=== PATIENT | female | born 1975 | race Caucasian/White ===

== ENCOUNTER 2025-05-25 23:31 | Inpatient (IN) | payer MEDICAID, OTHER ==
[~2025-05-25] VITALS: Ht 165.1 cm; Wt 63.4 kg
[2025-05-26] MEDS: SODIUM CHLORIDE 0.9% 1,000 ML IV ONE ×2 (00:15→01:24)
[2025-05-26] MEDS ORDERED: KETOROLAC TROMETH 30 MG/ML 1ML VIAL IV ONE (00:15)
[2025-05-26 00:25] LABS: Hematocrit 33.7 % (36.0-46.0); Hemoglobin 11.4 g/dL (12.2-16.2); Mean Corpuscular Hemoglobin 30.3 pg (28.0-32.0); Mean Corpuscular Volume 89.8 fL (80.0-100.0); Nucleated Red Blood Cells % 0.0 %
[2025-05-26 00:47] LABS: Alanine Aminotransferase 24 U/L (7-40); Albumin 4.0 g/dL (3.2-4.8); Alkaline Phosphatase 107 U/L (46-116); Anion Gap 14 (5-15); BUN/Creatinine Ratio 20.7 (10.0-20.0); Calcium 9.4 mg/dL (8.7-10.4); Glucose 89 mg/dL (74-106); Lipase 44 U/L (12-53); Magnesium 2.2 mg/dL (1.6-2.6); Potassium 3.6 mmol/L (3.5-5.1); Total Protein 7.1 g/dL (5.7-8.2)
[2025-05-26 00:55] LABS: Bilirubin, Total 0.2 mg/dL (0.2-1.0); Carbon Dioxide 16 mmol/L (20-31); Chloride 97 mmol/L (98-107); Sodium 127 mmol/L (136-145)
[2025-05-26 00:56] LABS: Blood Urea Nitrogen 94 mg/dL (9-23)
--- NOTE | 2025-05-26 01:08 | DVH ---
Exam: CT CT AB PEL WO CON-NO ORAL OR IV History: left flank pain, obstructed stone seen on US Comparison Study: None TECHNIQUE: Multidetector CT of the abdomen and pelvis was performed from lung bases to pubic symphysis. Imaging was performed without IV contrast. Axial, coronal, and sagittal multiplanar reformats were obtained from the axial data set by the technologist. RADIATION DOSE: CTDI vol 5.2 mGy. DLP 327.9 mGy.cm Findings: Limited evaluation of the solid organs in the absence of IV contrast. Lungs: Basilar atelectasis/scarring. Liver: Too small to characterize right hepatic lesion. Spleen: Unremarkable. Pancreas: Unremarkable. Gallbladder: Unremarkable. Adrenals: Unremarkable Kidneys: 19 mm calculus is seen in the left renal pelvis with moderate left hydronephrosis. Bilateral additional nephrolithiasis is seen. Nondilated ureters. Pelvic Viscera: Prior hysterectomy. Vasculature: Unremarkable. Retroperitoneum: Shotty retroperitoneal nodes. Bowel: No bowel obstruction. Submucosal fat deposition within the bowel wall may reflect chronic inflammation. Fluid-filled portions of the ascending colon. Moderate hiatal hernia. Musculoskeletal: Surgical screws are present within the left proximal femur. Soft tissues: Lateral breast implants. Impression: 1. 19 mm calculus within the left renal pelvis with moderate left hydronephrosis. 2. Bilateral nephrolithiasis. 3. Additional findings as detailed.
[2025-05-26] MEDS: FAMOTIDINE (10MG/ML) 2ML VL IV ONE (01:35)
[2025-05-26] MEDS: THIAMINE HCL 100 MG TAB PO ONE (01:35)
[2025-05-26] MEDS: FOLIC ACID 1 MG TAB PO ONE (01:35)
[2025-05-26] MEDS: MULTIPLE VITAMIN TAB PO ONE (01:45)
[2025-05-26] MEDS ORDERED: ONDANSETRON ODT 4 MG TAB PO PRN (02:00)
[2025-05-26] MEDS ORDERED: SODIUM CHLORIDE 0.9% 1,000 ML IV SCH (02:00)
[2025-05-26] MEDS: ONDANSETRON HCL 4 MG/2 ML VIAL IV ONE (02:16)
--- NOTE | 2025-05-26 02:31 | ED.PDOC ---
History of Present Illness HPI Comments 49-year-old female with past medical history of alcohol abuse presenting for evaluation of abdominal pain, flank pain, nausea, vomiting, diarrhea over the past several days. Patient reports that she does drink alcohol regularly, drinks each day. However, has not had any alcoholic beverages in the last few days due to her discomfort. Patient reports starting with several episodes of nonbloody, nonbilious emesis and several episodes of the loose, watery stools. Denies any recent antibiotic use. No recent travel outside of the ordinary. Patient reports that she started having pain throughout both sides of her abdomen and both flanks, however, left side was slightly worse than the right side. Reports did start having some slight urinary discomfort over the past couple of days. Having some subjective fevers as well, however, has not actually checked her temperature. Patient was initially seen at another hospital, had a renal ultrasound which showed that she had an obstructive kidney stone so they transferred her here for further evaluation and management. Patient reports no known prior history of kidney stones. When she was seen at the other hospital she was given Zosyn before being transferred over. Chief Complaint: Flank Pain Time Seen by MD: 23:50 Allergies: Coded Allergies: Codeine (Verified Allergy, Unknown, 05/25/25) Information Source: Patient Mode of Arrival: EMS Past Medical History PAST MEDICAL HISTORY: High Lipids Surgical History: Denies all surgeries TRAPEZE ARTIST History: No Pertinent TRAPEZE ARTIST History Family History Family History: Reviewed,noncontributory to illness, Unknown Social History Smoker: Non-Smoker Alcohol: Heavy Drugs: Denies Drug Use Lives In: Home Constitutional: reports: chills, fatigue, fever, weakness; denies: diaphoresis, malaise, sweats, others EENTM: denies: blurred vision, double vision, ear bleeding, ear discharge, ear drainage, ear pain, ear ringing, eye pain, eye redness, hearing loss, mouth pain, mouth swelling, nasal discharge, nose bleeding, nose congestion, nose pain, photophobia, tearing, throat pain, throat swelling, voice changes, others Respiratory: denies: cough, hemoptysis, orthopnea, SOB at rest, shortness of breath, SOB with excertion, stridor, wheezing, others Cardiovascular: denies: chest pain, dizzy spells, diaphoresis, Dyspnea on exertion, edema, irregular heart beat, left arm pain, lightheadedness, palpitations, PND, syncope, others Gastrointestinal: reports: abdominal pain, diarrhea, nausea, poor fluid intake, vomiting; denies: abdomen distended, blood streaked bowels, constipated, dysphagia, difficulty swallowing, hematemesis, melena, poor appetite, rectal bleeding, rectal pain, others Genitourinary: denies: abnormal vagina bleeding, burning, dyspareunia, dysuria, flank pain, frequency, hematuria, incontinence, pain, , vagina discharge, urgency, others Neurological: denies: dizziness, fainting, headache, left sided numbness, left sided weakness, numbness, paresthesia, pre-existing deficit, right sided numbness, right sided weakness, seizure, speech problems, tingling, tremors, weakness, others Musculoskeletal: denies: back pain, gout, joint pain, joint swelling, muscle pain, muscle stiffness, neck pain, others Integumetry: denies: bruises, change in color, change in hair/nails, dryness, laceration, lesions, lumps, rash, wounds, others Allergic/Immunocompromised: denies: Difficulty Healing, Frequent Infections, Hives, Itching, others Hematologic/Lymphatic: denies: anemia, blood clots, easy bleeding, easy bruising, swollen glands, others Endocrine: denies: excessive hunger, excessive sweating, excessive thirst, excessive urination, flushing, intolerance to cold, intolerance to heat, unexplained weight gain, unexplained weight loss, others Psychiatric: denies: anxiety, bipolar disorder, depression, hopeless, panic disorder, schizophrenia, sleepless, suicidal, others All Other Systems: Reviewed and Negative Physical Exam General Appearance: No Apparent Distress, Normal HEENT: Normal ENT Inspection, Pharynx Normal, TMs Normal Neck: Full Range of Motion, Non-Tender, Normal, Normal Inspection Respiratory: Chest Non-Tender, Lungs Clear, No Accessory Muscle Use, No Respiratory Distress, Normal Breath Sounds Cardiovascular: No Edema, No JVD, No Murmur, No Gallop, Normal Peripheral Pulses, Regular Rate/Rhythm Breast Exam: Deferred Gastrointestinal: No Organomegaly, No Pulsatile Mass, Normal Bowel Sounds, Soft, Other (+bilateral lower abdominal ttp) Genitalia: Deferred Pelvic: Deferred Rectal: Deferred Extremities: No calf tenderness, Normal capillary refill, Normal inspection, Normal range of motion, Non-tender, No pedal edema Musculoskeletal : Apperance: Normal 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 Was a procedure done?: No Differential Dx Considerations may include: Dehydration, electrolyte abnormalities, acute kidney insufficiency, obstructive kidney stone, alcohol withdrawal X-Ray, Labs, Meds, VS Vital Signs Date Time Temp Pulse Resp B/P (MAP) Pulse Ox O2 Delivery O2 Flow Rate FiO2 05/26/25 01:30 98.7 101 18 100/69 (79) 97 98.7 05/25/25 23:31 98.6 102 18 112/80 99 98.6 Lab Test 05/26/25 00:14 Range/Units White Blood Count 6.6 4.4-10.8 10^3/uL Red Blood Count 3.75 L 4.0-5.20 10^6/uL Hemoglobin 11.4 L 12.2-16.2 g/dL Hematocrit 33.7 L 36.0-46.0 % Mean Corpuscular Volume 89.8 80.0-100.0 fL Mean Corpuscular Hemoglobin 30.3 28.0-32.0 pg Mean Corpuscular Hemoglobin Concent 33.7 32.0-36.0 g/dL Red Cell Distribution Width 15.6 H 11.8-14.3 % Platelet Count 392 140-450 10^3/uL Mean Platelet Volume 6.6 L 6.9-10.8 fL Neutrophils (%) (Auto) 69.0 37.0-80.0 % Lymphocytes (%) (Auto) 16.1 10.0-50.0 % Monocytes (%) (Auto) 12.6 H 0.0-12.0 % Eosinophils (%) (Auto) 1.9 0.0-7.0 % Basophils (%) (Auto) 0.4 0.0-2.0 % Neutrophils # (Auto) 4.5 1.6-8.6 10 ^3/uL Lymphocytes # (Auto) 1.1 0.4-5.4 10 ^3/uL Monocytes # (Auto) 0.8 0-1.3 10 ^3/uL Eosinophils # (Auto) 0.1 0-0.8 10 ^3/uL Basophils # (Auto) 0 0-0.2 10 ^3/uL Nucleated Red Blood Cells 0.0 % Sodium Level 127 L 136-145 mmol/L Potassium Level 3.6 3.5-5.1 mmol/L Chloride Level 97 L 98-107 mmol/L Carbon Dioxide Level 16 L 20-31 mmol/L Anion Gap 14 5-15 Blood Urea Nitrogen 94 *H 9-23 mg/dL Creatinine 4.54 H 0.550-1.02 mg/dL Glomerular Filtration Rate Calc 11 >90 mL/min BUN/Creatinine Ratio 20.7 H 10.0-20.0 Serum Glucose 89 74-106 mg/dL Calcium Level 9.4 8.7-10.4 mg/dL Magnesium Level 2.2 1.6-2.6 mg/dL Total Bilirubin 0.2 0.2-1.0 mg/dL Aspartate Amino Transferase (AST) 23 13-40 U/L Alanine Aminotransferase (ALT) 24 7-40 U/L Alkaline Phosphatase 107 46-116 U/L Creatine Kinase 48 34-145 U/L Total Protein 7.1 5.7-8.2 g/dL Albumin 4.0 3.2-4.8 g/dL Lipase 44 12-53 U/L Vitamin B12 Level Pending Vitamin D 25-Hydroxy Pending Thyroid Stimulating Hormone (TSH) Pending Plasma/Serum Blood Alcohol < 3.0 <10 mg/dL Current Medications Medications (Trade) Dose Ordered Sig/Fred Route Start Time Stop Time Status Last Admin Sodium Chloride 1,000 ml @ 1,000 mls/hr Q1H ONCE IV 05/26/25 00:15 05/26/25 01:14 DC 05/26/25 00:15 Ondansetron HCl (Zofran) 4 mg ONCE ONCE IV 05/26/25 00:15 05/26/25 00:16 DC 05/26/25 02:16 Famotidine (Pepcid Injection) 20 mg ONCE ONCE IV 05/26/25 00:15 05/26/25 00:16 DC 05/26/25 01:35 Multivitamins (Mvi Tab) 1 tab ONCE ONCE PO 05/26/25 00:15 05/26/25 00:16 MS 05/26/25 01:45 Folic Acid 1 mg ONCE ONCE PO 05/26/25 00:15 05/26/25 00:16 DC 05/26/25 01:35 Thiamine HCl 100 mg ONCE ONCE PO 05/26/25 00:15 05/26/25 00:16 DC 05/26/25 01:35 Sodium Chloride 1,000 ml @ 1,000 mls/hr Q1H ONCE IV 05/26/25 01:15 05/26/25 02:14 DC 05/26/25 01:24 Time of 1ST Reevaluation: 02:29 Reevaluation 1ST: Improved Patient Education/Counseling: Diagnosis, Treatment, Prognosis Family Education/Counseling: No Family Present SEPSIS Sepsis Screen Date sepsis recognized/suspect: May 25, 2025 Time Sepsis recognized/suspect: 2330 Recent Procedure: No On Antibiotic Therapy: No Respiratory Rate >20: No Heart Rate >90: No Temp<36 C (96.8 F) or >38.3 C: No SBP <90 or MAP <65 mmHG: No New Acute Mental Status Change: No Is the patient on CPAP, BIPAP,: No Physician Orders Ct Ab Pel Wo Con-No Oral Or Iv (05/26/25 00:07) Insert Mcclelland Catheter QSHIFT (05/26/25 01:02) Vital Signs Date Time Temp Pulse Resp B/P (MAP) Pulse Ox O2 Delivery O2 Flow Rate FiO2 05/26/25 01:30 98.7 101 18 100/69 (79) 97 98.7 05/25/25 23:31 98.6 102 18 112/80 99 98.6 Laboratory Tests Test 05/26/25 00:14 White Blood Count 6.6 10^3/uL (4.4-10.8) Medications Medications Dose Ordered Sig/Fred Route Start Time Stop Time Status Last Admin Dose Admin Famotidine 20 mg ONCE ONCE IV 05/26/25 00:15 05/26/25 00:16 MS 05/26/25 01:35 Folic Acid 1 mg ONCE ONCE PO 05/26/25 00:15 05/26/25 00:16 MS 05/26/25 01:35 Multivitamins 1 tab ONCE ONCE PO 05/26/25 00:15 05/26/25 00:16 DC 05/26/25 01:45 Ondansetron HCl 4 mg ONCE ONCE IV 05/26/25 00:15 05/26/25 00:16 MS 05/26/25 02:16 Sodium Chloride 1,000 ml @ 1,000 mls/hr Q1H ONCE IV 05/26/25 00:15 05/26/25 01:14 DC 05/26/25 00:15 Sodium Chloride 1,000 ml @ 1,000 mls/hr Q1H ONCE IV 05/26/25 01:15 05/26/25 02:14 DC 05/26/25 01:24 Thiamine HCl 100 mg ONCE ONCE PO 05/26/25 00:15 05/26/25 00:16 DC 05/26/25 01:35 Departure 1 Departure Time of Disposition: 02:31 (49-year-old female with past medical history of alcohol abuse presenting for evaluation of abdominal pain, flank pain, nausea, vomiting, diarrhea over the past several days. Patient was initially seen at another hospital, there were notable for hyponatremia (126) and metabolic acidosis with a bicarb of 14. Urinalysis there was positive for nitrites, she was given Zosyn. Renal ultrasound performed there showed that the patient had a 1.4 cm left renal calculus with moderate left hydronephrosis. Patient upon arrival only noted to be mildly tachycardic, however, remainder of vital signs within normal limits. Labs repeated here. CBC with no evidence of critical leukocytosis or significant anemia. Metabolic panel was notable for acute kidney insufficiency, especially in relation to labs performed just 12 hours ago. Patient now has BUN of 94 with a creatinine of 4.54. This is likely related to severe dehydration from GI losses, may also be related to obstructive kidney stone. CT of the abdomen pelvis was performed here which shows that the patient has a 19 mm left renal pelvis stone with moderate hydronephrosis. A Mcclelland catheter will be placed given signs of acute kidney insufficiency which may be related to dehydration and possibly related to obstructive kidney stone. Patient will be admitted for further management. Defer to admitting team to consult Urology in the morning. Patient was given 1 L normal saline IV fluid bolus, oral thiamine, folic acid, multivitamin given the history of alcohol abuse. Was given IV Pepcid, IV Zofran for symptoms as well. Urinalysis ordered, patient was already given antibiotics at outside hospital. Will be admitted for further workup and management of RIRI an obstructive kidney stone.) Impression: Primary Impression: Nausea vomiting and diarrhea Additional Impressions: Dehydration Acute kidney injury Left nephrolithiasis Hydronephrosis of left kidney Hydronephrosis with urinary obstruction due to renal calculus Alcohol abuse Disposition: 09 ADMITTED INPATIENT Admit to: Med Surg Condition: Fair Critical Care Note Critical Care Time?: No Stability Stability form required: TITO Govea MD May 26, 2025 02:31
--- NOTE | 2025-05-26 02:38 | DVHHPRES ---
History of Present Illness Resident Creating Document: VINEET RAMOS RESIDENT History of Present Illness This is a 49-year-old female with past medical history of hypertension, nephrolithiasis, anxiety disorder, insomnia, low-back pain transfer from [facility] due to left flank pain. Patient had left flank pain for 1 week which is worsen for 1 day, 8/10 intensity, aggravated on movement, dull and burning in nature, continuous, tried ibuprofen with does not helps a lot. Patient reports that she does drink alcohol regularly, drinks each day. However, has not had any alcoholic beverages in the last few days due to her abdominal discomfort. Patient reports starting with several episodes of nonbloody, nonbilious emesis and several episodes of the loose, watery stools. Denies any recent antibiotic use. No recent travel outside of the ordinary. Diarrhea for same duration which is on and off, does not mixed with blood. Patient multiple history of surgery including surgical screw on left femur due to early stage osteoporotic fracture, bilateral breast augmentation, history of salpingo-oophorectomy. Patient denies any recent dietary changes, sick contacts, fall or trauma. Patient currently denies any fever, chest pain, SOB, headache, dysuria, any focal weakness. Past medical history: As above Past surgical history: As above Personal history: Denies any smoking, illicit drug but drinks alcohol daily(last drink 5 days ago) Family history: Mother-renal transplant PCP: Vamsi Jean-Baptiste Allergy: Codeine Home medication: Lisinopril, trazodone, ibuprofen, cyclobenzaprine, hydroxyzine. Review of Systems Constitutional: Yes: Chills, Malaise; No: Fever, Sweats, Weakness, Other Eyes: No: Pain, Vision change, Conjunctivae inflammation, Eyelid inflammation, Other, Redness ENT: No: Ear pain, Ear discharge, Nose pain, Nose discharge, Nose congestion, Mouth pain, Mouth swelling, Throat pain, Throat swelling, Other Respiratory: No: Cough, Dry, Shortness of breath, SOB with excertion, Wheezing, Hemoptysis, Pleuritic Pain, Sputum, Wheezing, Other Cardiovascular: No: Chest Pain, Palpitations, Orthopnea, Paroxysmal Noc. Dyspnea, Edema, Lt Headedness, Other Gastrointestinal: Nausea, Vomiting, Diarrhea; No: Abdominal Pain, Constipation, Melena, Hematochezia, Other Genitourinary: No Dysuria, No Frequency, No Incontinence, No Hematuria, No Retention; Other (Left flank pain) Musculoskeletal: back pain; No: other, neck pain, shoulder pain, arm pain, hand pain, leg pain, foot pain Skin: No: Rash, Lesions, Jaundice, Bruising, Other Neurological: No: Weakness, Numbness, Incoordination, Change in speech, Confusion, Seizures, Other Allergies: Coded Allergies: Codeine (Verified Allergy, Unknown, 05/25/25) Exam Vital Signs Vital Signs Date Time Temp Pulse Resp B/P (MAP) Pulse Ox O2 Delivery O2 Flow Rate FiO2 05/26/25 01:30 98.7 101 18 100/69 (79) 97 98.7 General Appearance: Alert, Cooperative, moderate distress HEENT: Atraumatic, PERRLA, EOMI Respiratory: Clear to auscultation, Normal air movement Cardiovascular: Regular rate, Normal S1, Normal S2, No murmurs Abdominal: Normal bowel sounds, Soft, Other (Left costovertebral angle tender on deep palpation) Extremities: No clubbing, No cyanosis, No edema, Normal pulses Skin: No rashes, No breakdown Neuro: Normal gait, Normal speech, Strength at 5/5 X4 ext, Normal tone, Cranial nerves 3-12 NL Psych/Mental Status: Mental status NL, Mood NL Labs/Xrays Labs Test 05/26/25 00:14 Range/Units White Blood Count 6.6 4.4-10.8 10^3/uL Red Blood Count 3.75 L 4.0-5.20 10^6/uL Hemoglobin 11.4 L 12.2-16.2 g/dL Hematocrit 33.7 L 36.0-46.0 % Mean Corpuscular Volume 89.8 80.0-100.0 fL Mean Corpuscular Hemoglobin 30.3 28.0-32.0 pg Mean Corpuscular Hemoglobin Concent 33.7 32.0-36.0 g/dL Red Cell Distribution Width 15.6 H 11.8-14.3 % Platelet Count 392 140-450 10^3/uL Mean Platelet Volume 6.6 L 6.9-10.8 fL Neutrophils (%) (Auto) 69.0 37.0-80.0 % Lymphocytes (%) (Auto) 16.1 10.0-50.0 % Monocytes (%) (Auto) 12.6 H 0.0-12.0 % Eosinophils (%) (Auto) 1.9 0.0-7.0 % Basophils (%) (Auto) 0.4 0.0-2.0 % Neutrophils # (Auto) 4.5 1.6-8.6 10 ^3/uL Lymphocytes # (Auto) 1.1 0.4-5.4 10 ^3/uL Monocytes # (Auto) 0.8 0-1.3 10 ^3/uL Eosinophils # (Auto) 0.1 0-0.8 10 ^3/uL Basophils # (Auto) 0 0-0.2 10 ^3/uL Nucleated Red Blood Cells 0.0 % Sodium Level 127 L 136-145 mmol/L Potassium Level 3.6 3.5-5.1 mmol/L Chloride Level 97 L 98-107 mmol/L Carbon Dioxide Level 16 L 20-31 mmol/L Anion Gap 14 5-15 Blood Urea Nitrogen 94 *H 9-23 mg/dL Creatinine 4.54 H 0.550-1.02 mg/dL Glomerular Filtration Rate Calc 11 >90 mL/min BUN/Creatinine Ratio 20.7 H 10.0-20.0 Serum Glucose 89 74-106 mg/dL Calcium Level 9.4 8.7-10.4 mg/dL Magnesium Level 2.2 1.6-2.6 mg/dL Total Bilirubin 0.2 0.2-1.0 mg/dL Aspartate Amino Transferase (AST) 23 13-40 U/L Alanine Aminotransferase (ALT) 24 7-40 U/L Alkaline Phosphatase 107 46-116 U/L Total Protein 7.1 5.7-8.2 g/dL Albumin 4.0 3.2-4.8 g/dL Lipase 44 12-53 U/L SEPSIS Sepsis Screen Date sepsis recognized/suspect: May 25, 2025 Time Sepsis recognized/suspect: 2330 Recent Procedure: No On Antibiotic Therapy: No Respiratory Rate >20: No Heart Rate >90: No Temp<36 C (96.8 F) or >38.3 C: No SBP <90 or MAP <65 mmHG: No New Acute Mental Status Change: No Is the patient on CPAP, BIPAP,: No Physician Orders Comprehensive Metabolic Panel (05/26/25 00:07) Lipase (05/26/25 00:07) Urinalysis (05/26/25 00:07) Magnesium (05/26/25 00:07) Blood Alcohol (05/26/25 00:07) Drug Screen (05/26/25 00:07) Ct Ab Pel Wo Con-No Oral Or Iv (05/26/25 00:07) Creatine Kinase (05/26/25 01:02) Insert Mcclelland Catheter QSHIFT (05/26/25 01:02) Admit (05/26/25 01:58) Code Status (05/26/25 01:58) Full Liq Diet (05/26/25 Breakfast) 0.9% Ns 1000 Ml (05/26/25 02:00) Acetaminophen Tablet (Tylenol Tablet) (05/26/25 02:00) Notify Md Of Changes From Base (05/26/25 01:58) Ketorolac Injection (Toradol Injection) (05/26/25 02:00) Pantoprazole Tablet (Protonix Tablet) (05/26/25 06:00) Ondansetron Po (Zofran Po) (05/26/25 02:00) Trazodone Hcl (Desyrel) (05/26/25 22:00) Hydroxyzine Oral (Vistaril Oral) (05/26/25 02:00) * Urology Consult (05/26/25 01:58) Vital Signs Date Time Temp Pulse Resp B/P (MAP) Pulse Ox O2 Delivery O2 Flow Rate FiO2 05/26/25 01:30 98.7 101 18 100/69 (79) 97 98.7 05/25/25 23:31 98.6 102 18 112/80 99 98.6 Laboratory Tests Test 05/26/25 00:14 White Blood Count 6.6 10^3/uL (4.4-10.8) Medications Medications Dose Ordered Sig/Fred Route Start Time Stop Time Status Last Admin Dose Admin Famotidine 20 mg ONCE ONCE IV 05/26/25 00:15 05/26/25 00:16 DC 05/26/25 01:35 20 MG Folic Acid 1 mg ONCE ONCE PO 05/26/25 00:15 05/26/25 00:16 DC 05/26/25 01:35 1 MG Multivitamins 1 tab ONCE ONCE PO 05/26/25 00:15 05/26/25 00:16 DC 05/26/25 01:45 1 TAB Ondansetron HCl 4 mg ONCE ONCE IV 05/26/25 00:15 05/26/25 00:16 DC 05/26/25 02:16 4 MG Sodium Chloride 1,000 ml @ 1,000 mls/hr Q1H ONCE IV 05/26/25 00:15 05/26/25 01:14 DC 05/26/25 00:15 1,000 MLS/HR Sodium Chloride 1,000 ml @ 1,000 mls/hr Q1H ONCE IV 05/26/25 01:15 05/26/25 02:14 DC 05/26/25 01:24 1,000 MLS/HR Thiamine HCl 100 mg ONCE ONCE PO 05/26/25 00:15 05/26/25 00:16 DC 05/26/25 01:35 100 MG Assessment/Plan Assessment/Plan Intractable left flank/back pain due to bilateral nephrolithiasis Left sided hydronephrosis Acute gastroenteritis viral/bacterial Complicated urinary tract infection Vitals: On admission, tachycardic In ER patient received NSS, ondansetron, famotidine, ketorolac, multivitamin, folic acid, thiamine. UA showed blood 1+, leukocyte esterase 2+, RBC 4, WBC 30 Lipase: 44 Creatinine kinase -48 CT abdomen pelvis wo contrast: 19 mm calculus is seen in the left renal pelvis with moderate left hydronephrosis. Bilateral additional nephrolithiasis is seen. 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 Outpatient follow-up Bilateral breast implants. Surgical screws are present within the left proximal femur. Diet: Clear liquid GI prophylaxis: Pantoprazole DVT prophylaxis: Patient ambulating, SCD Goals of care discussion. More than 29 minute spent with patient. Full code status. Case discussed with Dr. Ramon Plan discussed with: Patient, Other (Nurse) My Orders Orders - VINEET RAMOS Procedure Category Date Status Time Admit ADMIT 05/26/25 Verified 01:58 Code Status CODE 05/26/25 Verified 01:58 Full Liq Diet DIET 05/26/25 Verified Breakfast 0.9% Ns 1000 Ml PHA 05/26/25 Verified 02:00 Acetaminophen Tablet PHA 05/26/25 Verified (Tylenol Tablet) 02:00 Notify Md Of Changes LYNN 05/26/25 Verified From Base 01:58 Ketorolac Injection PHA 05/26/25 Verified (Toradol Injection) 02:00 Pantoprazole Tablet PHA 05/26/25 Verified (Protonix Tablet) 06:00 Ondansetron Po PHA 05/26/25 Verified (Zofran Po) 02:00 Trazodone Hcl PHA 05/26/25 Verified (Desyrel) 22:00 Hydroxyzine Oral PHA 05/26/25 Verified (Vistaril Oral) 02:00 * Urology Consult CONS 05/26/25 Verified 01:58 Visit Coding STANDARD RES Billing Provider: JERI RAMON MD Date of Service if different f: May 26, 2025 Common Visit Codes: 56053-AESOHSU INP/OBS CARE (HIGH) Secondary Visit Codes: 76073-KRMIMMRH CARE PLAN 30 MINUTES VINEET RAMOS RESIDENT May 26, 2025 02:38 FLORENCE GASTELUM RESIDENT May 26, 2025 03:37
[2025-05-26] MEDS: hydrOXYzine 25 MG TAB or CAP PO ONE (03:02)
[2025-05-26 03:24] LABS: Urine Protein, UAD Negative (Negative)
[2025-05-26 03:44] LABS: Amphetamine Screen, Urine Neg (NEGATIVE); Benzodiazephine Screen, Urine Neg (NEGATIVE); Cannabinoid Screen, Urine Neg (NEGATIVE); Cocaine Screen, Urine Neg (NEGATIVE); Opiate Scree,Urine Neg (NEGATIVE); Phencyclidine Screen, Urine Neg (NEGATIVE)
[2025-05-26] MEDS: SODIUM CHLORIDE 0.9% 1,000 ML IV SCH (03:47)
[2025-05-26 04:32] LABS: Barbiturate Scree,Urine Neg (NEGATIVE)
[2025-05-26] MEDS: PANTOPRAZOLE 40 MG TAB PO SCH (05:18)
[2025-05-26 05:26] LABS: Hematocrit 31.8 % (36.0-46.0); Hemoglobin 10.5 g/dL (12.2-16.2); Mean Corpuscular Hemoglobin 29.9 pg (28.0-32.0); Mean Corpuscular Volume 90.2 fL (80.0-100.0); Nucleated Red Blood Cells % 0.0 %
[2025-05-26 05:33] LABS: Chloride 102 mmol/L (98-107); Potassium 3.7 mmol/L (3.5-5.1)
[2025-05-26 05:34] LABS: Anion Gap 14 (5-15)
[2025-05-26 05:39] LABS: Glucose 88 mg/dL (74-106)
[2025-05-26 05:40] LABS: Calcium 8.4 mg/dL (8.7-10.4); Carbon Dioxide 15 mmol/L (20-31); Sodium 131 mmol/L (136-145)
[2025-05-26 05:43] LABS: BUN/Creatinine Ratio 21.6 (10.0-20.0)
[2025-05-26 05:44] LABS: Blood Urea Nitrogen 88 mg/dL (9-23)
[2025-05-26] MEDS: MAGNESIUM SULFATE 1GM/100ML 100 ML IV ONE (06:00)
[2025-05-26 07:41] VITALS: PULSE 99; RESP 16; O2SAT 95
[2025-05-26] MEDS: KETOROLAC TROMETH 30 MG/ML 1ML VIAL IV PRN (08:41)
[2025-05-26] MEDS: FOLIC ACID 1 MG TAB PO SCH (09:49)
[2025-05-26] MEDS: THIAMINE HCL 100 MG TAB PO SCH (09:49)
[2025-05-26] MEDS ORDERED: TRAZ-228 PO (10:30)
[2025-05-26] MEDS: ERGOCALCIFEROL 50,000 UNIT(1.25MG) CAP PO SCH (10:30)
[2025-05-26] MEDS ORDERED: LISI-275 PO (10:33)
[2025-05-26] MEDS ORDERED: HYDR-3682 PO (10:41)
[2025-05-26] MEDS ORDERED: CYCL-837 PO (10:41)
--- NOTE | 2025-05-26 11:49 | DVHINCON2 ---
Date of service: May 26, [address] Aaron Reason for Consultation Acute kidney injury History of Present Illness Patient is a 49-year-old female with past medical history significant hypertension, kidney stones, anxiety, osteoporosis back pain and NSAIDs use is admitted for flank pain associated with nausea vomiting. On admission patient found to have elevated BUN creatinine nephrology is consulted for acute kidney injury Past Medical History hypertension, kidney stones, anxiety, osteoporosis back pain and NSAIDs use Past Surgical History Left hip surgery, hysterectomy Bilateral breast augmentation Allergies: Coded Allergies: Codeine (Verified Allergy, Unknown, 05/25/25) Uncoded Allergies: kiwi (Allergy, Unknown, 05/26/25) Home Meds Reported Medications Hydroxyzine Hcl (Hydroxyzine Hcl) 25 Mg Tab, 1 TAB PO TID, #30 TAB 05/26/25 Cyclobenzaprine Hcl (Cyclobenzaprine Hcl) 5 Mg Tab, 1 TAB PO TID, #30 TAB 05/26/25 Lisinopril (Lisinopril) 5 Mg Tab, 5 MG PO DAILY, TAB 05/26/25 Trazodone Hcl (Trazodone Hcl) 100 Mg Tab, 50 MG PO HS, TAB 05/26/25 Current Medications Current Medications Medications (Trade) Dose Ordered Sig/Fred Route PRN Reason Start Time Stop Time Status Last Admin Sodium Chloride 1,000 ml @ 100 mls/hr Q10H IV 05/26/25 02:00 05/26/25 02:42 DC Acetaminophen (Tylenol Tablet) 650 mg Q6HP PRN PO PAIN SCALE 1-3 OR TEMP>100.4 05/26/25 02:00 Ketorolac Tromethamine (Toradol Injection) 15 mg Q6HPRN PRN IV MODERATE PAIN (4-6 PAIN SCALE) 05/26/25 02:00 05/31/25 01:59 05/26/25 08:41 Pantoprazole Sodium (Protonix Tablet) 40 mg DAILY@0600 PO 05/26/25 06:00 05/26/25 05:18 Ondansetron HCl (Zofran Po) 4 mg Q6HP PRN PO NAUSEA / VOMITING 05/26/25 02:00 Trazodone HCl (Desyrel) 50 mg HS PO 05/26/25 22:00 Sodium Chloride 1,000 ml @ 75 mls/hr [id number] IV 05/26/25 02:45 05/26/25 03:47 Thiamine HCl 100 mg DAILY PO 05/26/25 10:00 Folic Acid 1 mg DAILY PO 05/26/25 10:00 Ceftriaxone Sodium 50 ml @ 100 mls/hr DAILY@2100 IV 05/26/25 21:00 Ergocalciferol (Vitamin D 50,000 Unit) 50,000 unit Q7D PO 05/26/25 10:00 05/26/25 10:30 Metronidazole 100 ml @ 100 mls/hr Q8HR IV 05/26/25 22:00 Sodium Bicarbonate 50 ml/ Sodium Chloride 1,050 ml @ 100 mls/hr [id number] IV 05/26/25 11:45 Potassium Chloride 100 ml @ 50 mls/hr Q2H IV 05/26/25 11:45 05/26/25 15:44 Family History: Patient reports no known family medical history. Review of Systems All 12 item review of systems reviewed with the patient nonsignificant except what is mentioned in the history of present illness H&P Exam Vital Signs/I&O Vital Sign Date Time Temp Pulse Resp B/P (MAP) Pulse Ox O2 Delivery O2 Flow Rate FiO2 05/26/25 09:28 Room Air* 0 21 05/26/25 07:41 98 16 121/99 (106) 95 05/26/25 02:27 98.0 98.0 Intake and Output 05/25/25 05/26/25 19:00 07:00 Intake Total 2275 ml Output Total 1300 ml Balance 975 ml Intake IV Total 2275 ml Output Urine Total 1300 ml Physical Exam Patient lying comfortably in bed Lungs clear to auscultation bilaterally Cardiac exam regular rate and rhythm GI soft nontender left flank tenderness Extremities no clubbing cyanosis or edema Neuro nonfocal Labs/Diagnostic Data Labs/Diagnostic Data Laboratory Tests Test 05/26/25 12:36 05/26/25 11:28 05/26/25 09:30 05/26/25 05:00 Range/Units Serum Osmolality 293 278-298 mOsm/kg Lactic Acid Level 0.4 0.4-2.0 mmol/L White Blood Count 6.9 4.4-10.8 10^3/uL Red Blood Count 3.52 L 4.0-5.20 10^6/uL Hemoglobin 10.5 L 12.2-16.2 g/dL Hematocrit 31.8 L 36.0-46.0 % Mean Corpuscular Volume 90.2 80.0-100.0 fL Mean Corpuscular Hemoglobin 29.9 28.0-32.0 pg Mean Corpuscular Hemoglobin Concent 33.2 32.0-36.0 g/dL Red Cell Distribution Width 15.3 H 11.8-14.3 % Platelet Count 379 140-450 10^3/uL Mean Platelet Volume 6.6 L 6.9-10.8 fL Neutrophils (%) (Auto) 70.3 37.0-80.0 % Lymphocytes (%) (Auto) 15.5 10.0-50.0 % Monocytes (%) (Auto) 12.1 H 0.0-12.0 % Eosinophils (%) (Auto) 1.7 0.0-7.0 % Basophils (%) (Auto) 0.4 0.0-2.0 % Neutrophils # (Auto) 4.9 1.6-8.6 10 ^3/uL Lymphocytes # (Auto) 1.1 0.4-5.4 10 ^3/uL Monocytes # (Auto) 0.8 0-1.3 10 ^3/uL Eosinophils # (Auto) 0.1 0-0.8 10 ^3/uL Basophils # (Auto) 0 0-0.2 10 ^3/uL Nucleated Red Blood Cells 0.0 % Sodium Level 131 L 136-145 mmol/L Potassium Level 3.7 3.5-5.1 mmol/L Chloride Level 102 98-107 mmol/L Carbon Dioxide Level 15 L 20-31 mmol/L Anion Gap 14 5-15 Blood Urea Nitrogen 88 *H 9-23 mg/dL Creatinine 4.07 H 0.550-1.02 mg/dL Glomerular Filtration Rate Calc 13 >90 mL/min BUN/Creatinine Ratio 21.6 H 10.0-20.0 Serum Glucose 88 74-106 mg/dL Calcium Level 8.4 L 8.7-10.4 mg/dL Test 05/26/25 02:30 05/26/25 00:14 Range/Units Urine Color Colorless Yellow Urine Clarity Clear Clear Urine pH 6.5 5.0-9.0 Urine Specific [place] 1.007 1.001-1.035 Urine Protein Negative Negative Urine Ketones Negative Negative Urine Blood 1+ H Negative /uL Urine Nitrite Negative Negative Urine Bilirubin Negative Negative Urine Urobilinogen Normal Negative mg/dL Urine Leukocyte Esterase 2+ Negative /uL Urine RBC 4 0 - 4 /hpf Urine Microscopic WBC 30 H 0-5 /HPF Urine Squamous Epithelial Cells Few <5 /hpf Urine Bacteria None seen None Seen /hpf Urine Glucose Normal Normal mg/dL Urine Opiates Screen Neg NEGATIVE Urine Fentanyl Screen Neg NEGATIVE Urine Barbiturates Screen Neg NEGATIVE Urine Phencyclidine Screen Neg NEGATIVE Urine Amphetamines Screen Neg NEGATIVE Urine Benzodiazepines Screen Neg NEGATIVE Urine Cocaine Screen Neg NEGATIVE Urine Cannabinoids Screen Neg NEGATIVE White Blood Count 6.6 4.4-10.8 10^3/uL Red Blood Count 3.75 L 4.0-5.20 10^6/uL Hemoglobin 11.4 L 12.2-16.2 g/dL Hematocrit 33.7 L 36.0-46.0 % Mean Corpuscular Volume 89.8 80.0-100.0 fL Mean Corpuscular Hemoglobin 30.3 28.0-32.0 pg Mean Corpuscular Hemoglobin Concent 33.7 32.0-36.0 g/dL Red Cell Distribution Width 15.6 H 11.8-14.3 % Platelet Count 392 140-450 10^3/uL Mean Platelet Volume 6.6 L 6.9-10.8 fL Neutrophils (%) (Auto) 69.0 37.0-80.0 % Lymphocytes (%) (Auto) 16.1 10.0-50.0 % Monocytes (%) (Auto) 12.6 H 0.0-12.0 % Eosinophils (%) (Auto) 1.9 0.0-7.0 % Basophils (%) (Auto) 0.4 0.0-2.0 % Neutrophils # (Auto) 4.5 1.6-8.6 10 ^3/uL Lymphocytes # (Auto) 1.1 0.4-5.4 10 ^3/uL Monocytes # (Auto) 0.8 0-1.3 10 ^3/uL Eosinophils # (Auto) 0.1 0-0.8 10 ^3/uL Basophils # (Auto) 0 0-0.2 10 ^3/uL Nucleated Red Blood Cells 0.0 % Sodium Level 127 L 136-145 mmol/L Potassium Level 3.6 3.5-5.1 mmol/L Chloride Level 97 L 98-107 mmol/L Carbon Dioxide Level 16 L 20-31 mmol/L Anion Gap 14 5-15 Blood Urea Nitrogen 94 *H 9-23 mg/dL Creatinine 4.54 H 0.550-1.02 mg/dL Glomerular Filtration Rate Calc 11 >90 mL/min BUN/Creatinine Ratio 20.7 H 10.0-20.0 Serum Glucose 89 74-106 mg/dL Calcium Level 9.4 8.7-10.4 mg/dL Magnesium Level 2.2 1.6-2.6 mg/dL Total Bilirubin 0.2 0.2-1.0 mg/dL Aspartate Amino Transferase (AST) 23 13-40 U/L Alanine Aminotransferase (ALT) 24 7-40 U/L Alkaline Phosphatase 107 46-116 U/L Creatine Kinase 48 34-145 U/L Total Protein 7.1 5.7-8.2 g/dL Albumin 4.0 3.2-4.8 g/dL Lipase 44 12-53 U/L Vitamin B12 Level 1168 H 211-911 pg/mL Vitamin D 25-Hydroxy 21.3 L 30.0-100 ng/mL Thyroid Stimulating Hormone (TSH) 4.41 0.55-4.78 uIU/mL Plasma/Serum Blood Alcohol < 3.0 <10 mg/dL Assessment Acute kidney injury superimposed Chronic Kidney Disease secondary hemodynamic mediated Obstructing kidney stone Left hydronephrosis Pyelonephritis Hypertension Hyponatremia due to dehydration Anemia of chronic kidney disease Recommendation Closely monitor fluid and electrolytes Avoid nephrotoxic medications Strict I&Os Check urine electrolytes and protein excretion I agree with IV fluid hydration IV antibiotics Hold TERRENCE inhibitors Blood pressure control Urology consult We will continue to follow Patient seen and examined by myself. I discussed my plan of care with the patient and primary nurse at the bedside I would like to thank Dr. Aaron for the consult, will follow up Plan discussed with: Patient HEIDY GUZMAN MD May 26, 2025 11:49
[2025-05-26 13:00] VITALS: BP 110/78; PULSE 82; RESP 20; TEMP 98.6; O2SAT 98
--- NOTE | 2025-05-26 13:10 | DVHINCON2 ---
Date of service: May 26, 2025 Referring Physician Diane Reason for Consultation obstructive uropathy History of Present Illness History Source: Patient, RN Notes, MD Notes, Old Records Exam Limitations: No limitations HPI 49 yo female transferred from [facility] with obstructing 19 mm left renal pelvic stone with moderate hydronephrosis and RIRI. c/o 1 week of N/V/D. Heavy NSAID use for the past 2 weeks 800 mg TID and chronic alcohol use for the past 10 years 1/5 of vodka daily. Recently she has cut down to 2-3 drinks daily. Multiple admissions for ETOH withdrawal ([facility] and [facility]). Home Meds Reported Medications Hydroxyzine Hcl (Hydroxyzine Hcl) 25 Mg Tab, 1 TAB PO TID, #30 TAB 05/26/25 Cyclobenzaprine Hcl (Cyclobenzaprine Hcl) 5 Mg Tab, 1 TAB PO TID, #30 TAB 05/26/25 Lisinopril (Lisinopril) 5 Mg Tab, 5 MG PO DAILY, TAB 05/26/25 Trazodone Hcl (Trazodone Hcl) 100 Mg Tab, 50 MG PO HS, TAB 05/26/25 Past Medical History Cardiac: HTN Pulmonary: No pertinent Hx Central Nervous System: Migraine GI: No pertinent Hx Hemotology/Oncology: No pertinent Hx Hepatobiliary: No pertinent Hx Psychiatric: Anxiety, Depression, Other (anorexia) Musculoskeletal: Osteoarthritis Rheumotologic: No pertinent Hx Infectious Disease: No peritnent Hx ENT: No pertinent Hx Renal/: Acute renal failure, UTI, Other (kidney stone) Endocrine: Hypothyroidism Dermatology: No pertinent Hx Past Surgical History: Hysterctomy, Total hip replacement, Other (breast augmentation) Family History: DM Patient Family History: Patient reports no known family medical history. Smoker: No Hx (Negative) Alocohol: Heavy Drugs: None Lives with: With family Domestic Violence: Neg Review of Systems Constitutional: Weight loss Gastrointestinal: Nausea, Vomiting, Abdominal Pain, Diarrhea Genitourinary: Frequency Musculoskeletal: Back pain H&P Exam Vital Signs Vital Signs Date Time Temp Pulse Resp B/P (MAP) Pulse Ox O2 Delivery O2 Flow Rate FiO2 05/26/25 09:28 Room Air* 0 21 05/26/25 07:41 98 16 121/99 (106) 95 05/26/25 02:27 98.0 98.0 General Appeara: Mild distress, Thin Pulmonary/Respiratory: Normal inspection, Normal breath sounds, Chest non- tender, Lungs clear Cardiovascular/Chest: Normal inspection, Regular rate, Normal Rhythm Abdominal Exam: Normal bowel sounds, Soft, No tenderness, No hepatospenomegaly, No masses Back Exam: Normal inspection Pelvic Exam: Not done Neuro/Mental St: Alert, Oriented Appearance: Appropriate appearance, Appropriate insight Eye contact/ Speech: Cooperative, Good eye contact, Normal speech Skin Exam: Normal inspection, Normal color, Warm/dry Labs/Xrays [place] [id number] Ph: [phone] DIAGNOSTIC IMAGING Diagnostic Imaging Report : [id number] Signed PATIENT: MATTEO MCGARRY ACCT: [id number] UNIT: [id number] : 1975 LOC: ER ROOM / BED: / AGE / SEX: 49 / F ADM STATUS: REG ER SERVICE 0007 ORDERING PHYSICIAN: TITO RICHARD MD PROCEDURE(s): ABPL - CT AB PEL WO CON-NO ORAL OR IV REASON: left flank pain, obstructed stone seen on US ORDER NUMBER(s): [id number], ACCESSION NUMBER(s): [id number] Exam: CT CT AB PEL WO CON-NO ORAL OR IV History: left flank pain, obstructed stone seen on US Comparison Study: None TECHNIQUE: Multidetector CT of the abdomen and pelvis was performed from lung bases to pubic symphysis. Imaging was performed without IV contrast. Axial, coronal, and sagittal multiplanar reformats were obtained from the axial data set by the technologist. RADIATION DOSE: CTDI vol 5.2 mGy. DLP 327.9 mGy.cm Findings: Limited evaluation of the solid organs in the absence of IV contrast. Lungs: Basilar atelectasis/scarring. Liver: Too small to characterize right hepatic lesion. Spleen: Unremarkable. Pancreas: Unremarkable. Gallbladder: Unremarkable. Adrenals: Unremarkable Kidneys: 19 mm calculus is seen in the left renal pelvis with moderate left hydronephrosis. Bilateral additional nephrolithiasis is seen. Nondilated ureters. Pelvic Viscera: Prior hysterectomy. Vasculature: Unremarkable. Retroperitoneum: Shotty retroperitoneal nodes. Bowel: No bowel obstruction. Submucosal fat deposition within the bowel wall may reflect chronic inflammation. Fluid-filled portions of the ascending colon. Moderate hiatal hernia. Musculoskeletal: Surgical screws are present within the left proximal femur. Soft tissues: Lateral breast implants. Impression: 1. 19 mm calculus within the left renal pelvis with moderate left hydronephrosis. 2. Bilateral nephrolithiasis. 3. Additional findings as detailed. ATED BY: BONY PEREIRA MD DICTATED DATE/TIME: 05/26/25104 SIGNED BY: BONY PEREIRA MD SIGNED DATE/TIME: 05/26/25104 CC: Labs Test 05/26/25 12:36 05/26/25 11:28 05/26/25 05:00 05/26/25 02:30 Range/Units Serum Osmolality 293 278-298 mOsm/kg Lactic Acid Level 0.4 0.4-2.0 mmol/L White Blood Count 6.9 4.4-10.8 10^3/uL Red Blood Count 3.52 L 4.0-5.20 10^6/uL Hemoglobin 10.5 L 12.2-16.2 g/dL Hematocrit 31.8 L 36.0-46.0 % Mean Corpuscular Volume 90.2 80.0-100.0 fL Mean Corpuscular Hemoglobin 29.9 28.0-32.0 pg Mean Corpuscular Hemoglobin Concent 33.2 32.0-36.0 g/dL Red Cell Distribution Width 15.3 H 11.8-14.3 % Platelet Count 379 140-450 10^3/uL Mean Platelet Volume 6.6 L 6.9-10.8 fL Neutrophils (%) (Auto) 70.3 37.0-80.0 % Lymphocytes (%) (Auto) 15.5 10.0-50.0 % Monocytes (%) (Auto) 12.1 H 0.0-12.0 % Eosinophils (%) (Auto) 1.7 0.0-7.0 % Basophils (%) (Auto) 0.4 0.0-2.0 % Neutrophils # (Auto) 4.9 1.6-8.6 10 ^3/uL Lymphocytes # (Auto) 1.1 0.4-5.4 10 ^3/uL Monocytes # (Auto) 0.8 0-1.3 10 ^3/uL Eosinophils # (Auto) 0.1 0-0.8 10 ^3/uL Basophils # (Auto) 0 0-0.2 10 ^3/uL Nucleated Red Blood Cells 0.0 % Sodium Level 131 L 136-145 mmol/L Potassium Level 3.7 3.5-5.1 mmol/L Chloride Level 102 98-107 mmol/L Carbon Dioxide Level 15 L 20-31 mmol/L Anion Gap 14 5-15 Blood Urea Nitrogen 88 *H 9-23 mg/dL Creatinine 4.07 H 0.550-1.02 mg/dL Glomerular Filtration Rate Calc 13 >90 mL/min BUN/Creatinine Ratio 21.6 H 10.0-20.0 Serum Glucose 88 74-106 mg/dL Calcium Level 8.4 L 8.7-10.4 mg/dL Urine Color Colorless Yellow Urine Clarity Clear Clear Urine pH 6.5 5.0-9.0 Urine Specific [place] 1.007 1.001-1.035 Urine Protein Negative Negative Urine Ketones Negative Negative Urine Blood 1+ H Negative /uL Urine Nitrite Negative Negative Urine Bilirubin Negative Negative Urine Urobilinogen Normal Negative mg/dL Urine Leukocyte Esterase 2+ Negative /uL Urine RBC 4 0 - 4 /hpf Urine Microscopic WBC 30 H 0-5 /HPF Urine Squamous Epithelial Cells Few <5 /hpf Urine Bacteria None seen None Seen /hpf Urine Glucose Normal Normal mg/dL Urine Opiates Screen Neg NEGATIVE Urine Fentanyl Screen Neg NEGATIVE Urine Barbiturates Screen Neg NEGATIVE Urine Phencyclidine Screen Neg NEGATIVE Urine Amphetamines Screen Neg NEGATIVE Urine Benzodiazepines Screen Neg NEGATIVE Urine Cocaine Screen Neg NEGATIVE Urine Cannabinoids Screen Neg NEGATIVE Test 05/26/25 00:14 Range/Units Total Bilirubin 0.2 0.2-1.0 mg/dL Aspartate Amino Transferase (AST) 23 13-40 U/L Alanine Aminotransferase (ALT) 24 7-40 U/L Alkaline Phosphatase 107 46-116 U/L Creatine Kinase 48 34-145 U/L Total Protein 7.1 5.7-8.2 g/dL Albumin 4.0 3.2-4.8 g/dL Lipase 44 12-53 U/L Vitamin B12 Level 1168 H 211-911 pg/mL Vitamin D 25-Hydroxy 21.3 L 30.0-100 ng/mL Thyroid Stimulating Hormone (TSH) 4.41 0.55-4.78 uIU/mL Plasma/Serum Blood Alcohol < 3.0 <10 mg/dL Assessment/Plan Problem List: (1) Anorexia (2) Anxiety (3) Diarrhea (4) Dehydration (5) Alcohol abuse (6) Hydronephrosis of left kidney (7) Acute kidney injury (8) Nausea vomiting and diarrhea (9) Left nephrolithiasis (10) Hydronephrosis with urinary obstruction due to renal calculus Plan consult IR for left PCN placement koo to gravity monitor BMP aggressive fluids monitor for alcohol withdrawal avoid nsaids lithotripsy TBA Plan discussed with: Patient, Other JACKELINE RAJPUT TIN ROOFER May 26, 2025 13:10
[2025-05-26 13:31] LABS: Magnesium 2.3 mg/dL (1.6-2.6)
[2025-05-26 13:43] LABS: Urine Protein, UAD Negative (Negative)
[2025-05-26] MEDS: POTASSIUM CHL 20MEQ/100ML 100 ML IV SCH (13:45)
[2025-05-26 13:56] LABS: Protein, Urine 25.4 mg/dL (1-14)
[2025-05-26 13:57] LABS: INR 0.96 (0.9-1.15); Prothrombin Time 10.2 sec (9.3-11.8)
[2025-05-26 13:59] LABS: Uric Acid 7.9 mg/dL (3.1-7.8)
[2025-05-26] MEDS: SODIUM BICARB 50mEq/50ml Vial 50 ML in SOD CHL 0.45% 1,000 ML IV SCH (14:49)
[2025-05-26] MEDS: ACETAMINOPHEN 325 MG TAB PO PRN (14:52)
[2025-05-26 17:00] VITALS: BP 125/89; PULSE 93; RESP 19; TEMP 98.6; O2SAT 98
--- NOTE | 2025-05-26 17:32 | DVHPNRES ---
Progress Note Date Seen: May 26, 2025 Resident Creating Document: SE[place]ST[place] RESIDENT Medical Necessity Reason Pt with a Central, PICC or Fol: No Subjective Review of Systems This is a 49-year-old female with past medical history of hypertension, nephrolithiasis, anxiety disorder, insomnia, low-back pain transfer from [facility] due to left flank pain. Patient had left flank pain for 1 week which is worsen for 1 day, 8/10 intensity, aggravated on movement, dull and burning in nature, continuous, tried ibuprofen with does not helps a lot. Patient reports that she does drink alcohol regularly, drinks each day. However, has not had any alcoholic beverages in the last few days due to her abdominal discomfort. Patient reports starting with several episodes of nonbloody, nonbilious emesis and several episodes of the loose, watery stools. Denies any recent antibiotic use. No recent travel outside of the ordinary. Diarrhea for same duration which is on and off, does not mixed with blood. Patient multiple history of surgery including surgical screw on left femur due to early stage osteoporotic fracture, bilateral breast augmentation, history of salpingo-oophorectomy. Patient denies any recent dietary changes, sick contacts, fall or trauma. Patient currently denies any fever, chest pain, SOB, headache, dysuria, any focal weakness. Past medical history: As above Past surgical history: As above Personal history: Denies any smoking, illicit drug but drinks alcohol daily(last drink 5 days ago) Family history: Mother-renal transplant PCP: Vamsi Jean-Baptiste Allergy: Codeine Home medication: Lisinopril, trazodone, ibuprofen, cyclobenzaprine, hydroxyzine. General: patient denies fever, fatigue, weaknes, sweating, any recent changes in appetite and weight HEENT: No headaches, visiual changes, hearing loss, tinnitus, nasal congestion and discharge, and sore throat. Cardiovascular: Denies chest pain, palpitations, dyspnea on exertion, orthopnea, or claudication. Respiratory: No cough, and wheezing. Gastrointestinal: Complains of left flank pain. Genitourinary: No dysuria, hematuria, discharge, frequency, urgency, nocturia, incontinence, and urinary retention. Endocrine: No heat or cold intolerance, polydipsia, polyuria, and polyphagia. Neurological: No dizziness, extremity weakness and numbness, tremors, gait disturbance, seizures, and memory impairment. Psychiatric: Denies depression, anxiety,or insomnia. Musculoskeletal: Denies neck pain, stiffness and swelling, back pain, muscle weakness, joint pain, stiffness, swelling, or limited range of motion. Skin: No rashes, itching, skin lesion, changes in hair, nail, skin texture and breast. Hematologic/Lymphatic: Denies easy bruising, bleeding tendencies, or lymph node enlargement. Objective vital signs Vital Sign Date Time Temp Pulse Resp B/P (MAP) Pulse Ox O2 Delivery O2 Flow Rate FiO2 05/26/25 13:00 98.6 82 20 110/78 (89) 98 98.6 05/26/25 09:28 Room Air* 0 21 Total Intake and Output 05/25/25 05/25/25 05/26/25 15:00 23:00 07:00 Intake Total 2275 ml Output Total 1300 ml Balance 975 ml medications Current Medications Medications Dose Ordered Sig/Fred Route Start Time Stop Time Status Last Admin Dose Admin Acetaminophen 650 mg Q6HP PRN PO 05/26/25 02:00 05/26/25 14:52 650 MG Ketorolac Tromethamine 15 mg Q6HPRN PRN IV 05/26/25 02:00 05/31/25 01:59 05/26/25 08:41 15 MG Pantoprazole Sodium 40 mg DAILY@0600 PO 05/26/25 06:00 05/26/25 05:18 40 MG Ondansetron HCl 4 mg Q6HP PRN PO 05/26/25 02:00 Trazodone HCl 50 mg HS PO 05/26/25 22:00 Sodium Chloride 1,000 ml @ 75 mls/hr [id number] IV 05/26/25 02:45 05/26/25 03:47 75 MLS/HR Thiamine HCl 100 mg DAILY PO 05/26/25 10:00 Folic Acid 1 mg DAILY PO 05/26/25 10:00 Ceftriaxone Sodium 50 ml @ 100 mls/hr DAILY@2100 IV 05/26/25 21:00 Ergocalciferol 50,000 unit Q7D PO 05/26/25 10:00 05/26/25 10:30 50,000 UNIT Metronidazole 100 ml @ 100 mls/hr Q8HR IV 05/26/25 22:00 Sodium Bicarbonate 50 ml/ Sodium Chloride 1,050 ml @ 100 mls/hr [id number] IV 05/26/25 11:45 05/26/25 14:49 100 MLS/HR Examination General Appearance: Alert, Cooperative, moderate distress HEENT: Atraumatic, PERRLA, EOMI Respiratory: Clear to auscultation, Normal air movement Cardiovascular: Regular rate, Normal S1, Normal S2, No murmurs Abdominal: Normal bowel sounds, Soft, Other (Left costovertebral angle tender on deep palpation) Extremities: No clubbing, No cyanosis, No edema, Normal pulses Skin: No rashes, No breakdown Neuro: Normal gait, Normal speech, Strength at 5/5 X4 ext, Normal tone, Cranial nerves 3-12 NL Psych/Mental Status: Mental status NL, Mood NL laboratory and microbiology Laboratory Tests 05/26/25 05:00 Test 05/26/25 05:00 Range/Units Serum Glucose 88 74-106 mg/dL Microbiology Date/Time Source Procedure Growth Status 05/26/25 05:14 Stool Stool Culture - Preliminary Resulted 05/26/25 05:14 Stool Shiga Toxin I & II - Final Resulted Problem List/Assessment/Plan Problem List/Assessment/Plan Assessment/Plan Intractable left flank/back pain due to bilateral nephrolithiasis Left sided hydronephrosis Acute gastroenteritis viral/bacterial Complicated urinary tract infection Hyponatremia Vitals: On admission, tachycardic In ER patient received NSS, ondansetron, famotidine, ketorolac, multivitamin, folic acid, thiamine. UA showed blood 1+, leukocyte esterase 2+, RBC 4, WBC 30 Lipase: 44 Creatinine kinase -48 CT abdomen pelvis wo contrast: 19 mm calculus is seen in the left renal pelvis with moderate left hydronephrosis. Bilateral additional nephrolithiasis is seen. UDS-negative Clear liquid Ceftriaxone IV empiric antibiotic Flagyl IV IVF Pain management antiemetic Urology consult Serum osmolarity Lactic acid Anemia of chronic disease Hemoglobin 11.4, HCT 33.7, RDW 15.6, MCV 89.8 No active signs symptoms of bleeding Hypertensive nephropathy RIRI on CKD due to vasomotor nephropathy Unknown baseline Metabolic acidosis due to above IVF, patient able to make urine Lisinopril -home medication Monitor renal function Avoid nephrotoxic drugs Nephrology consult ETOH use disorder Current CIWA score-0 Alcohol level Thiamine Folic acid Vitamin D deficiency Vitamin D 91941 u/weekly Hyponatremia Sodium 127 Bmp Bilateral breast implants. Surgical screws are present within the left proximal femur. Diet: Clear liquid GI prophylaxis: Pantoprazole DVT prophylaxis: Patient ambulating, SCD Goals of care Full code status. Case discussed with Dr. Mtz Plan discussed with: Patient My Orders My Orders Orders - SEBASTIEN [place] Procedure Category Date Status Time Full Liq Diet DIET 05/26/25 Transmitted Lunch Date of Service: May 26, 2025 Billing Provider: CELE SANCHEZ MD Common Visit Codes: [id number] INP/OBS CARE(HIGH) SEBASTIEN [place] May 26, 2025 17:32
--- NOTE | 2025-05-26 18:12 | DVH ---
INDICATION: reassess hydronephrosis TECHNIQUE: Multiple real-time sonographic images of the kidneys and bladder were obtained. COMPARISON: CT abdomen/ pelvis 05/26/2025 FINDINGS: The right kidney measures 11.9 cm in length, which is normal in size. There is normal echogenicity of the right kidney. There is possible mild Right hydronephrosis. The left kidney measures 11.7 cm in length, which is normal in size. There is moderate left hydronephrosis. A calculus is redemonstrated at the renal pelvis. The urinary bladder demonstrates a Mcclelland catheter. IMPRESSION: 1. Moderate left hydronephrosis. Redemonstrated calculus of the left renal pelvis. 2. Possible mild Right hydronephrosis.
[2025-05-26 18:30] VITALS: BP 128/85; PULSE 96; RESP 18; TEMP 98.6; O2SAT 97
[2025-05-26 20:00] VITALS: PULSE 92; RESP 19; O2SAT 97
[2025-05-26 21:00] VITALS: BP 135/93; PULSE 92; RESP 19; TEMP 98; O2SAT 97
[2025-05-27] VITALS (8 sets, daily range): BP systolic 119–149; BP diastolic 72–105; PULSE 89–111; RESP 17–19; TEMP 97.2–98.8; O2SAT 96–100
[2025-05-27 07:24] LABS: Alanine Aminotransferase 23 U/L (7-40); Albumin 3.7 g/dL (3.2-4.8); Alkaline Phosphatase 99 U/L (46-116); Anion Gap 17 (5-15); BUN/Creatinine Ratio 21.7 (10.0-20.0); Calcium 9.0 mg/dL (8.7-10.4); Chloride 102 mmol/L (98-107); Total Protein 6.7 g/dL (5.7-8.2)
[2025-05-27 07:25] LABS: Bilirubin, Total 0.2 mg/dL (0.2-1.0); Blood Urea Nitrogen 72 mg/dL (9-23); Carbon Dioxide 14 mmol/L (20-31); Glucose 72 mg/dL (74-106); Potassium 3.1 mmol/L (3.5-5.1); Sodium 133 mmol/L (136-145)
[2025-05-27 07:57] LABS: Hematocrit 29.0 % (36.0-46.0); Hemoglobin 9.8 g/dL (12.2-16.2); Mean Corpuscular Hemoglobin 29.8 pg (28.0-32.0); Mean Corpuscular Volume 88.5 fL (80.0-100.0); Nucleated Red Blood Cells % 0.1 %
--- NOTE | 2025-05-27 12:11 | DVHPN2 ---
Progress Note Date Seen: May 27, 2025 Medical Necessity Reason Pt with a Central, PICC or Fol: No Subjective Patient reports: No new complaints Other Systems: Patient seen and examined by myself today in follow-up Objective vital signs Vital Sign Date Time Temp Pulse Resp B/P (MAP) Pulse Ox O2 Delivery O2 Flow Rate FiO2 05/27/25 08:50 97.3 89 18 122/72 (89) 98 97.3 05/26/25 20:00 Room Air* 0 21 Total Intake and Output 05/26/25 05/26/25 05/27/25 15:00 23:00 07:00 Intake Total 750 ml 850 ml Output Total 1900 ml 2260 ml Balance -1150 ml -1410 ml medications Current Medications Medications Dose Ordered Sig/Fred Route Start Time Stop Time Status Last Admin Dose Admin Acetaminophen 650 mg Q6HP PRN PO 05/26/25 02:00 05/26/25 14:52 650 MG Ketorolac Tromethamine 15 mg Q6HPRN PRN IV 05/26/25 02:00 05/31/25 01:59 05/27/25 06:05 15 MG Pantoprazole Sodium 40 mg DAILY@0600 PO 05/26/25 06:00 05/27/25 06:05 40 MG Ondansetron HCl 4 mg Q6HP PRN PO 05/26/25 02:00 Trazodone HCl 50 mg HS PO 05/26/25 22:00 05/26/25 22:42 50 MG Sodium Chloride 1,000 ml @ 75 mls/hr [id number] IV 05/26/25 02:45 05/26/25 03:47 75 MLS/HR Thiamine HCl 100 mg DAILY PO 05/26/25 10:00 05/27/25 11:07 100 MG Folic Acid 1 mg DAILY PO 05/26/25 10:00 05/27/25 11:06 1 MG Ceftriaxone Sodium 50 ml @ 100 mls/hr DAILY@2100 IV 05/26/25 21:00 05/26/25 22:27 100 MLS/HR Ergocalciferol 50,000 unit Q7D PO 05/26/25 10:00 05/26/25 10:30 50,000 UNIT Metronidazole 100 ml @ 100 mls/hr Q8HR IV 05/26/25 22:00 05/27/25 05:14 100 MLS/HR Sodium Bicarbonate 50 ml/ Sodium Chloride 1,050 ml @ 100 mls/hr [id number] IV 05/26/25 11:45 05/27/25 11:07 100 MLS/HR Docusate Sodium 100 mg DAILY@2000 PO 05/27/25 20:00 Examination: LUNGS:Normal, CVS:Normal, MSK:Normal laboratory and microbiology Laboratory Tests 05/27/25 06:26 Test 05/27/25 06:26 Range/Units Serum Glucose 72 L 74-106 mg/dL Microbiology Date/Time Source Procedure Growth Status 05/26/25 05:14 Stool Stool Culture - Preliminary Resulted 05/26/25 05:14 Stool Shiga Toxin I & II - Final Resulted Problem List/Assessment/Plan Problem List/Assessment/Plan Acute kidney injury superimposed Chronic Kidney Disease secondary hemodynamic mediated Obstructing kidney stone Left hydronephrosis Pyelonephritis Hypertension Hyponatremia due to dehydration Anemia of chronic kidney disease Proteinuria Hyperuricemia Hypokalemia Recommendation Kidney function is improving Increased urine output Strict I&Os KCL replacement I agree with IV fluid hydration IV antibiotics Hold TERRENCE inhibitors Blood pressure control Urology consult We will continue to follow Plan discussed with: Patient HEIDY GUZMAN MD May 27, 2025 12:11
--- NOTE | 2025-05-27 13:15 | DVHPNRES ---
Progress Note Date Seen: May 27, 2025 Resident Creating Document: [place] RESIDENT Medical Necessity Reason Pt with a Central, PICC or Fol: No Subjective Review of Systems Patient seen at bedside. Flank pain improving. WBCs trending high. IR consulted. This is a 49-year-old female with past medical history of hypertension, nephrolithiasis, anxiety disorder, insomnia, low-back pain transfer from [facility] due to left flank pain. Patient had left flank pain for 1 week which is worsen for 1 day, 8/10 intensity, aggravated on movement, dull and burning in nature, continuous, tried ibuprofen with does not helps a lot. Patient reports that she does drink alcohol regularly, drinks each day. However, has not had any alcoholic beverages in the last few days due to her abdominal discomfort. Patient reports starting with several episodes of nonbloody, nonbilious emesis and several episodes of the loose, watery stools. Denies any recent antibiotic use. No recent travel outside of the ordinary. Diarrhea for same duration which is on and off, does not mixed with blood. Patient multiple history of surgery including surgical screw on left femur due to early stage osteoporotic fracture, bilateral breast augmentation, history of salpingo-oophorectomy. Patient denies any recent dietary changes, sick contacts, fall or trauma. Patient currently denies any fever, chest pain, SOB, headache, dysuria, any focal weakness. Past medical history: As above Past surgical history: As above Personal history: Denies any smoking, illicit drug but drinks alcohol daily(last drink 5 days ago) Family history: Mother-renal transplant PCP: Vamsi Jean-Baptiste Allergy: Codeine Home medication: Lisinopril, trazodone, ibuprofen, cyclobenzaprine, hydroxyzine. General: patient denies fever, fatigue, weaknes, sweating, any recent changes in appetite and weight HEENT: No headaches, visiual changes, hearing loss, tinnitus, nasal congestion and discharge, and sore throat. Cardiovascular: Denies chest pain, palpitations, dyspnea on exertion, orthopnea, or claudication. Respiratory: No cough, and wheezing. Gastrointestinal: Complains of left flank pain. Genitourinary: No dysuria, hematuria, discharge, frequency, urgency, nocturia, incontinence, and urinary retention. Endocrine: No heat or cold intolerance, polydipsia, polyuria, and polyphagia. Neurological: No dizziness, extremity weakness and numbness, tremors, gait disturbance, seizures, and memory impairment. Psychiatric: Denies depression, anxiety,or insomnia. Musculoskeletal: Denies neck pain, stiffness and swelling, back pain, muscle weakness, joint pain, stiffness, swelling, or limited range of motion. Skin: No rashes, itching, skin lesion, changes in hair, nail, skin texture and breast. Hematologic/Lymphatic: Denies easy bruising, bleeding tendencies, or lymph node enlargement. Objective vital signs Vital Sign Date Time Temp Pulse Resp B/P (MAP) Pulse Ox O2 Delivery O2 Flow Rate FiO2 05/27/25 08:50 97.3 89 18 122/72 (89) 98 97.3 05/26/25 20:00 Room Air* 0 21 Total Intake and Output 05/26/25 05/26/25 05/27/25 15:00 23:00 07:00 Intake Total 750 ml 850 ml Output Total 1900 ml 2260 ml Balance -1150 ml -1410 ml medications Current Medications Medications Dose Ordered Sig/Fred Route Start Time Stop Time Status Last Admin Dose Admin Acetaminophen 650 mg Q6HP PRN PO 05/26/25 02:00 05/26/25 14:52 650 MG Ketorolac Tromethamine 15 mg Q6HPRN PRN IV 05/26/25 02:00 05/31/25 01:59 05/27/25 06:05 15 MG Pantoprazole Sodium 40 mg DAILY@0600 PO 05/26/25 06:00 05/27/25 06:05 40 MG Ondansetron HCl 4 mg Q6HP PRN PO 05/26/25 02:00 Trazodone HCl 50 mg HS PO 05/26/25 22:00 05/26/25 22:42 50 MG Sodium Chloride 1,000 ml @ 75 mls/hr [id number] IV 05/26/25 02:45 05/26/25 03:47 75 MLS/HR Thiamine HCl 100 mg DAILY PO 05/26/25 10:00 05/27/25 11:07 100 MG Folic Acid 1 mg DAILY PO 05/26/25 10:00 05/27/25 11:06 1 MG Ceftriaxone Sodium 50 ml @ 100 mls/hr DAILY@2100 IV 05/26/25 21:00 05/26/25 22:27 100 MLS/HR Ergocalciferol 50,000 unit Q7D PO 05/26/25 10:00 05/26/25 10:30 50,000 UNIT Metronidazole 100 ml @ 100 mls/hr Q8HR IV 05/26/25 22:00 05/27/25 05:14 100 MLS/HR Sodium Bicarbonate 50 ml/ Sodium Chloride 1,050 ml @ 100 mls/hr [id number] IV 05/26/25 11:45 05/27/25 11:07 100 MLS/HR Docusate Sodium 100 mg DAILY@2000 PO 05/27/25 20:00 Examination General Appearance: Alert, Cooperative, moderate distress HEENT: Atraumatic, PERRLA, EOMI Respiratory: Clear to auscultation, Normal air movement Cardiovascular: Regular rate, Normal S1, Normal S2, No murmurs Abdominal: Normal bowel sounds, Soft, Other (Left costovertebral angle tender on deep palpation) Extremities: No clubbing, No cyanosis, No edema, Normal pulses Skin: No rashes, No breakdown Neuro: Normal gait, Normal speech, Strength at 5/5 X4 ext, Normal tone, Cranial nerves 3-12 NL Psych/Mental Status: Mental status NL, Mood NL laboratory and microbiology Laboratory Tests 05/27/25 06:26 Test 05/27/25 06:26 Range/Units Serum Glucose 72 L 74-106 mg/dL Microbiology Date/Time Source Procedure Growth Status 05/26/25 05:14 Stool Stool Culture - Preliminary Resulted 05/26/25 05:14 Stool Shiga Toxin I & II - Final Resulted 05/26/25 02:30 Voided Urine Urine Culture - Preliminary Resulted Problem List/Assessment/Plan Problem List/Assessment/Plan Assessment/Plan Intractable left flank/back pain due to bilateral nephrolithiasis Left sided hydronephrosis Acute gastroenteritis viral/bacterial Complicated urinary tract infection Hyponatremia Vitals: On admission, tachycardic In ER patient received NSS, ondansetron, famotidine, ketorolac, multivitamin, folic acid, thiamine. UA showed blood 1+, leukocyte esterase 2+, RBC 4, WBC 30 Lipase: 44 Creatinine kinase -48 CT abdomen pelvis wo contrast: 19 mm calculus is seen in the left renal pelvis with moderate left hydronephrosis. Bilateral additional nephrolithiasis is seen. UDS-negative Clear liquid Ceftriaxone IV empiric antibiotic Flagyl IV IVF Pain management antiemetic Urology consult Serum osmolarity Lactic acid IR consulted Anemia of chronic disease Hemoglobin 11.4, HCT 33.7, RDW 15.6, MCV 89.8 No active signs symptoms of bleeding Hypertensive nephropathy RIRI on CKD due to vasomotor nephropathy Unknown baseline Metabolic acidosis due to above IVF, patient able to make urine Lisinopril -home medication Monitor renal function Avoid nephrotoxic drugs Nephrology consult ETOH use disorder Current CIWA score-0 Alcohol level Thiamine Folic acid Vitamin D deficiency Vitamin D 42138 u/weekly Hyponatremia Sodium 127 Bmp Bilateral breast implants. Surgical screws are present within the left proximal femur. Diet: Clear liquid GI prophylaxis: Pantoprazole DVT prophylaxis: Patient ambulating, SCD Goals of care Full code status. Case discussed with Dr. Zarate Plan discussed with: Patient My Orders My Orders Orders - SEBASTIEN MO Procedure Category Date Status Time Docusate Sodium PHA 05/27/25 In Process Capsule (Colace 20:00 Date of Service: May 27, 2025 Billing Provider: MANDY ZARATE DO Common Visit Codes: [id number] INP/OBS CARE(HIGH) SEBASTIEN MO May 27, 2025 13:15
[2025-05-27] MEDS: POTASSIUM EFFERVESENT TAB 25 MEQ PO ONE (13:53)
[2025-05-27] MEDS: DOCUSATE SOD 100 MG CAP PO SCH (20:00)
[2025-05-28] VITALS (8 sets, daily range): BP systolic 116–131; BP diastolic 88–103; PULSE 83–100; RESP 17–19; TEMP 97.4–98.7; O2SAT 97–100
[2025-05-28 05:53] LABS: Hemoglobin 10.5 g/dL (12.2-16.2)
[2025-05-28 05:55] LABS: Hematocrit 31.1 % (36.0-46.0); Mean Corpuscular Hemoglobin 30.1 pg (28.0-32.0); Mean Corpuscular Volume 89.1 fL (80.0-100.0); Nucleated Red Blood Cells % 0.0 %
[2025-05-28 06:18] LABS: Alanine Aminotransferase 21 U/L (7-40); Albumin 3.8 g/dL (3.2-4.8); Alkaline Phosphatase 90 U/L (46-116); Anion Gap 12 (5-15); BUN/Creatinine Ratio 23.4 (10.0-20.0); Bilirubin, Total 0.2 mg/dL (0.2-1.0); Blood Urea Nitrogen 65 mg/dL (9-23); Calcium 8.9 mg/dL (8.7-10.4); Carbon Dioxide 20 mmol/L (20-31); Chloride 100 mmol/L (98-107); Glucose 86 mg/dL (74-106); Potassium 3.5 mmol/L (3.5-5.1); Sodium 132 mmol/L (136-145); Total Protein 6.7 g/dL (5.7-8.2)
--- NOTE | 2025-05-28 11:51 | DVHPN2 ---
Progress Note Date Seen: May 28, 2025 Medical Necessity Reason Pt with a Central, PICC or Fol: No Subjective Patient reports: No new complaints Other Systems: Patient seen and examined by myself today in follow-up Objective vital signs Vital Sign Date Time Temp Pulse Resp B/P (MAP) Pulse Ox O2 Delivery O2 Flow Rate FiO2 05/28/25 09:00 98.2 90 19 121/91 (101) 97 98.2 05/27/25 20:00 Room Air* 0 21 Total Intake and Output 05/27/25 05/27/25 05/28/25 15:00 23:00 07:00 Intake Total 200 ml 2020 ml 1220 ml Output Total 950 ml 300 ml Balance 200 ml 1070 ml 920 ml medications Current Medications Medications Dose Ordered Sig/Fred Route Start Time Stop Time Status Last Admin Dose Admin Acetaminophen 650 mg Q6HP PRN PO 05/26/25 02:00 05/28/25 08:37 650 MG Ketorolac Tromethamine 15 mg Q6HPRN PRN IV 05/26/25 02:00 05/31/25 01:59 05/27/25 16:48 15 MG Pantoprazole Sodium 40 mg DAILY@0600 PO 05/26/25 06:00 05/28/25 05:20 40 MG Ondansetron HCl 4 mg Q6HP PRN PO 05/26/25 02:00 Trazodone HCl 50 mg HS PO 05/26/25 22:00 05/27/25 21:55 50 MG Sodium Chloride 1,000 ml @ 75 mls/hr [id number] IV 05/26/25 02:45 05/26/25 03:47 75 MLS/HR Thiamine HCl 100 mg DAILY PO 05/26/25 10:00 05/28/25 08:37 100 MG Folic Acid 1 mg DAILY PO 05/26/25 10:00 05/28/25 08:37 1 MG Ceftriaxone Sodium 50 ml @ 100 mls/hr DAILY@2100 IV 05/26/25 21:00 05/27/25 20:56 100 MLS/HR Ergocalciferol 50,000 unit Q7D PO 05/26/25 10:00 05/26/25 10:30 50,000 UNIT Metronidazole 100 ml @ 100 mls/hr Q8HR IV 05/26/25 22:00 05/28/25 05:20 100 MLS/HR Sodium Bicarbonate 50 ml/ Sodium Chloride 1,050 ml @ 100 mls/hr [id number] IV 05/26/25 11:45 05/28/25 02:54 100 MLS/HR Docusate Sodium 100 mg DAILY@1999 PO 05/27/25 20:00 05/27/25 20:00 100 MG Examination: LUNGS:Normal, CVS:Normal, MSK:Normal laboratory and microbiology Laboratory Tests 05/28/25 04:48 Test 05/28/25 04:48 Range/Units Serum Glucose 86 74-106 mg/dL Microbiology Date/Time Source Procedure Growth Status 05/26/25 05:14 Stool Stool Culture - Preliminary Resulted 05/26/25 05:14 Stool Shiga Toxin I & II - Final Resulted 05/26/25 02:30 Voided Urine Urine Culture - Preliminary Resulted Problem List/Assessment/Plan Problem List/Assessment/Plan Acute kidney injury superimposed Chronic Kidney Disease secondary hemodynamic mediated Obstructing kidney stone Left hydronephrosis Pyelonephritis Hypertension Hyponatremia due to dehydration Anemia of chronic kidney disease Proteinuria Hyperuricemia Hypokalemia Recommendation Kidney function is improving Increased urine output Strict I&Os I agree with IV fluid hydration KCL replacement IV antibiotics Hold TERRENCE inhibitors Blood pressure control Urology consult We will continue to follow Plan discussed with: Patient My Orders My Orders Orders - HEIDY GUZMAN MD Procedure Category Date Status Time Potassium Effervesent PHA 05/28/25 Verified Tab (Klor-Con/Ef) 12:00 HEIDY GUZMAN MD May 28, 2025 11:51
[2025-05-28] MEDS: POTASSIUM EFFERVESENT TAB 25 MEQ PO ONE (12:14)
--- NOTE | 2025-05-28 16:52 | DVHPNRES ---
Progress Note Date Seen: May 28, 2025 Resident Creating Document: [place] RESIDENT Medical Necessity Reason Pt with a Central, PICC or Fol: No Subjective Review of Systems Patient seen at bedside. Flank pain improving. WBC is trending down. IR consult pending. This is a 49-year-old female with past medical history of hypertension, nephrolithiasis, anxiety disorder, insomnia, low-back pain transfer from [facility] due to left flank pain. Patient had left flank pain for 1 week which is worsen for 1 day, 8/10 intensity, aggravated on movement, dull and burning in nature, continuous, tried ibuprofen with does not helps a lot. Patient reports that she does drink alcohol regularly, drinks each day. However, has not had any alcoholic beverages in the last few days due to her abdominal discomfort. Patient reports starting with several episodes of nonbloody, nonbilious emesis and several episodes of the loose, watery stools. Denies any recent antibiotic use. No recent travel outside of the ordinary. Diarrhea for same duration which is on and off, does not mixed with blood. Patient multiple history of surgery including surgical screw on left femur due to early stage osteoporotic fracture, bilateral breast augmentation, history of salpingo-oophorectomy. Patient denies any recent dietary changes, sick contacts, fall or trauma. Patient currently denies any fever, chest pain, SOB, headache, dysuria, any focal weakness. Past medical history: As above Past surgical history: As above Personal history: Denies any smoking, illicit drug but drinks alcohol daily(last drink 5 days ago) Family history: Mother-renal transplant PCP: Vamsi Jean-Baptiste Allergy: Codeine Home medication: Lisinopril, trazodone, ibuprofen, cyclobenzaprine, hydroxyzine. General: patient denies fever, fatigue, weaknes, sweating, any recent changes in appetite and weight HEENT: No headaches, visiual changes, hearing loss, tinnitus, nasal congestion and discharge, and sore throat. Cardiovascular: Denies chest pain, palpitations, dyspnea on exertion, orthopnea, or claudication. Respiratory: No cough, and wheezing. Gastrointestinal: Complains of left flank pain. Genitourinary: No dysuria, hematuria, discharge, frequency, urgency, nocturia, incontinence, and urinary retention. Endocrine: No heat or cold intolerance, polydipsia, polyuria, and polyphagia. Neurological: No dizziness, extremity weakness and numbness, tremors, gait disturbance, seizures, and memory impairment. Psychiatric: Denies depression, anxiety,or insomnia. Musculoskeletal: Denies neck pain, stiffness and swelling, back pain, muscle weakness, joint pain, stiffness, swelling, or limited range of motion. Skin: No rashes, itching, skin lesion, changes in hair, nail, skin texture and breast. Hematologic/Lymphatic: Denies easy bruising, bleeding tendencies, or lymph node enlargement. Objective vital signs Vital Sign Date Time Temp Pulse Resp B/P (MAP) Pulse Ox O2 Delivery O2 Flow Rate FiO2 05/28/25 13:00 97.6 89 18 128/100 (109) 100 97.6 05/28/25 07:30 Room Air* 0 21 Total Intake and Output 05/27/25 05/27/25 05/28/25 15:00 23:00 07:00 Intake Total 200 ml 2020 ml 1220 ml Output Total 950 ml 300 ml Balance 200 ml 1070 ml 920 ml medications Current Medications Medications Dose Ordered Sig/Fred Route Start Time Stop Time Status Last Admin Dose Admin Acetaminophen 650 mg Q6HP PRN PO 05/26/25 02:00 05/28/25 08:37 650 MG Ketorolac Tromethamine 15 mg Q6HPRN PRN IV 05/26/25 02:00 05/31/25 01:59 05/27/25 16:48 15 MG Pantoprazole Sodium 40 mg DAILY@0600 PO 05/26/25 06:00 05/28/25 05:20 40 MG Ondansetron HCl 4 mg Q6HP PRN PO 05/26/25 02:00 Trazodone HCl 50 mg HS PO 05/26/25 22:00 05/27/25 21:55 50 MG Sodium Chloride 1,000 ml @ 75 mls/hr [id number] IV 05/26/25 02:45 05/26/25 03:47 75 MLS/HR Thiamine HCl 100 mg DAILY PO 05/26/25 10:00 05/28/25 08:37 100 MG Folic Acid 1 mg DAILY PO 05/26/25 10:00 05/28/25 08:37 1 MG Ceftriaxone Sodium 50 ml @ 100 mls/hr DAILY@2100 IV 05/26/25 21:00 05/27/25 20:56 100 MLS/HR Ergocalciferol 50,000 unit Q7D PO 05/26/25 10:00 05/26/25 10:30 50,000 UNIT Metronidazole 100 ml @ 100 mls/hr Q8HR IV 05/26/25 22:00 05/28/25 13:55 100 MLS/HR Sodium Bicarbonate 50 ml/ Sodium Chloride 1,050 ml @ 100 mls/hr [id number] IV 05/26/25 11:45 05/28/25 02:54 100 MLS/HR Docusate Sodium 100 mg DAILY@2000 PO 05/27/25 20:00 05/27/25 20:00 100 MG Examination General Appearance: Alert, Cooperative, moderate distress HEENT: Atraumatic, PERRLA, EOMI Respiratory: Clear to auscultation, Normal air movement Cardiovascular: Regular rate, Normal S1, Normal S2, No murmurs Abdominal: Normal bowel sounds, Soft, Other (Left costovertebral angle tender on deep palpation) Extremities: No clubbing, No cyanosis, No edema, Normal pulses Skin: No rashes, No breakdown Neuro: Normal gait, Normal speech, Strength at 5/5 X4 ext, Normal tone, Cranial nerves 3-12 NL Psych/Mental Status: Mental status NL, Mood NL laboratory and microbiology Laboratory Tests 05/28/25 04:48 Test 05/28/25 04:48 Range/Units Serum Glucose 86 74-106 mg/dL Microbiology Date/Time Source Procedure Growth Status 05/26/25 05:14 Stool Stool Culture - Final Complete 05/26/25 05:14 Stool Shiga Toxin I & II - Final Complete 05/26/25 02:30 Voided Urine Urine Culture - Final Complete Problem List/Assessment/Plan Problem List/Assessment/Plan Assessment/Plan Intractable left flank/back pain due to bilateral nephrolithiasis Left sided hydronephrosis Acute gastroenteritis viral/bacterial Complicated urinary tract infection Hyponatremia Vitals: On admission, tachycardic In ER patient received NSS, ondansetron, famotidine, ketorolac, multivitamin, folic acid, thiamine. UA showed blood 1+, leukocyte esterase 2+, RBC 4, WBC 30 Lipase: 44 Creatinine kinase -48 CT abdomen pelvis wo contrast: 19 mm calculus is seen in the left renal pelvis with moderate left hydronephrosis. Bilateral additional nephrolithiasis is seen. UDS-negative Clear liquid Ceftriaxone IV empiric antibiotic Flagyl IV IVF Pain management antiemetic Urology consult Serum osmolarity Lactic acid IR consulted Anemia of chronic disease Hemoglobin 11.4, HCT 33.7, RDW 15.6, MCV 89.8 No active signs symptoms of bleeding Hypertensive nephropathy RIRI on CKD due to vasomotor nephropathy Unknown baseline Metabolic acidosis due to above IVF, patient able to make urine Lisinopril -home medication Monitor renal function Avoid nephrotoxic drugs Nephrology consult ETOH use disorder Current CIWA score-0 Alcohol level Thiamine Folic acid Vitamin D deficiency Vitamin D 62487 u/weekly Hyponatremia Sodium 127 Bmp Bilateral breast implants. Surgical screws are present within the left proximal femur. Diet: Clear liquid GI prophylaxis: Pantoprazole DVT prophylaxis: Patient ambulating, SCD Goals of care Full code status. Case discussed with Dr. Zarate Plan discussed with: Patient My Orders My Orders Orders - SEBASTIEN MO Procedure Category Date Status Time Complete Blood Count LAB 05/29/25 Verified 04:00 Comprehensive LAB 05/29/25 Verified Metabolic Panel 04:00 Date of Service: May 28, 2025 Billing Provider: MANDY ZARATE DO Common Visit Codes: [id number] INP/OBS CARE(HIGH) SEBASTIEN MO May 28, 2025 16:52 MANDY ZARATE DO May 29, 2025 11:24
[2025-05-28] MEDS: LACTULOSE 20Gm/30ML SOLN PO SCH (21:11)
[2025-05-29] VITALS (7 sets, daily range): BP systolic 122–133; BP diastolic 85–98; PULSE 83–95; RESP 16–18; TEMP 98.3–99.4; O2SAT 93–99
[2025-05-29 05:57] LABS: Hematocrit 28.9 % (36.0-46.0); Hemoglobin 9.8 g/dL (12.2-16.2); Mean Corpuscular Hemoglobin 30.7 pg (28.0-32.0); Mean Corpuscular Volume 90.5 fL (80.0-100.0); Nucleated Red Blood Cells % 0.1 %
[2025-05-29 06:00] LABS: Alanine Aminotransferase 16 U/L (7-40); Albumin 3.4 g/dL (3.2-4.8); Alkaline Phosphatase 79 U/L (46-116); Anion Gap 13 (5-15); BUN/Creatinine Ratio 22.3 (10.0-20.0); Blood Urea Nitrogen 47 mg/dL (9-23); Calcium 8.6 mg/dL (8.7-10.4); Carbon Dioxide 20 mmol/L (20-31); Chloride 102 mmol/L (98-107); Glucose 82 mg/dL (74-106); Potassium 3.9 mmol/L (3.5-5.1); Sodium 135 mmol/L (136-145); Total Protein 6.1 g/dL (5.7-8.2)
[2025-05-29 06:01] LABS: Bilirubin, Total 0.2 mg/dL (0.2-1.0)
--- NOTE | 2025-05-29 13:04 | DVHPN2 ---
Progress Note Date Seen: May 29, 2025 Medical Necessity Reason Pt with a Central, PICC or Fol: No Subjective Patient reports: No new complaints Other Systems: Patient seen and examined by myself today in follow-up Objective vital signs Vital Sign Date Time Temp Pulse Resp B/P (MAP) Pulse Ox O2 Delivery O2 Flow Rate FiO2 05/29/25 08:30 98.4 95 16 133/98 (110) 97 98.4 05/29/25 07:30 Room Air* 0 21 Total Intake and Output 05/28/25 05/28/25 05/29/25 14:59 22:59 06:59 Intake Total 1890 ml 750 ml Output Total 1450 ml 1300 ml Balance 440 ml -550 ml medications Current Medications Medications Dose Ordered Sig/Fred Route Start Time Stop Time Status Last Admin Dose Admin Acetaminophen 650 mg Q6HP PRN PO 05/26/25 02:00 05/29/25 06:09 650 MG Ketorolac Tromethamine 15 mg Q6HPRN PRN IV 05/26/25 02:00 05/31/25 01:59 05/28/25 17:20 15 MG Pantoprazole Sodium 40 mg DAILY@0600 PO 05/26/25 06:00 05/29/25 06:09 40 MG Ondansetron HCl 4 mg Q6HP PRN PO 05/26/25 02:00 Trazodone HCl 50 mg HS PO 05/26/25 22:00 05/28/25 21:11 50 MG Sodium Chloride 1,000 ml @ 75 mls/hr [id number] IV 05/26/25 02:45 05/28/25 21:12 75 MLS/HR Thiamine HCl 100 mg DAILY PO 05/26/25 10:00 05/29/25 11:38 100 MG Folic Acid 1 mg DAILY PO 05/26/25 10:00 05/29/25 11:38 1 MG Ceftriaxone Sodium 50 ml @ 100 mls/hr DAILY@2100 IV 05/26/25 21:00 05/28/25 21:12 100 MLS/HR Ergocalciferol 50,000 unit Q7D PO 05/26/25 10:00 05/26/25 10:30 50,000 UNIT Lactulose 15 ml BID PO 05/28/25 22:00 05/29/25 11:38 15 ML Polyethylene Glycol 17 gm DAILY PO 05/30/25 10:00 Examination: LUNGS:Normal, CVS:Normal, MSK:Normal laboratory and microbiology Laboratory Tests 05/29/25 04:46 Test 05/29/25 04:46 Range/Units Serum Glucose 82 74-106 mg/dL Microbiology Date/Time Source Procedure Growth Status 05/26/25 05:14 Stool Stool Culture - Final Complete 05/26/25 05:14 Stool Shiga Toxin I & II - Final Complete 05/26/25 02:30 Voided Urine Urine Culture - Final Complete Problem List/Assessment/Plan Problem List/Assessment/Plan Acute kidney injury superimposed Chronic Kidney Disease secondary hemodynamic mediated Obstructing kidney stone Left hydronephrosis Pyelonephritis Hypertension Hyponatremia due to dehydration Anemia of chronic kidney disease Proteinuria Hyperuricemia Hypokalemia Recommendation Kidney function is improving Increased urine output Strict I&Os I agree with IV fluid hydration KCL replacement IV antibiotics Hold TERRENCE inhibitors Blood pressure control Urology consult I will sign off this case please refer patient to my office two weeks after discharge for Chronic Kidney Disease follow-up Thank you for the kind Plan discussed with: Patient HEIDY GUZMAN MD May 29, 2025 13:04
[2025-05-29] MEDS: POLYETHYLENE GLYCOL 17 GM PWDR PO ONE (14:39)
--- NOTE | 2025-05-29 15:25 | DVHPNRES ---
Progress Note Date Seen: May 29, 2025 Resident Creating Document: IMAN BOLIVAR RESDIENT Medical Necessity Reason Pt with a Central, PICC or Fol: No Subjective Review of Systems Patient seen and examined at the bedside. Patient is feeling better since admission but still complaining of mild abdominal pain. Objective vital signs Vital Sign Date Time Temp Pulse Resp B/P (MAP) Pulse Ox O2 Delivery O2 Flow Rate FiO2 05/29/25 13:00 99.4 94 16 127/98 (108) 98 99.4 05/29/25 07:30 Room Air* 0 21 Total Intake and Output 05/28/25 05/28/25 05/29/25 15:00 23:00 07:00 Intake Total 1890 ml 750 ml Output Total 1450 ml 1300 ml Balance 440 ml -550 ml medications Current Medications Medications Dose Ordered Sig/Fred Route Start Time Stop Time Status Last Admin Dose Admin Acetaminophen 650 mg Q6HP PRN PO 05/26/25 02:00 05/29/25 06:09 650 MG Ketorolac Tromethamine 15 mg Q6HPRN PRN IV 05/26/25 02:00 05/31/25 01:59 05/28/25 17:20 15 MG Pantoprazole Sodium 40 mg DAILY@0600 PO 05/26/25 06:00 05/29/25 06:09 40 MG Ondansetron HCl 4 mg Q6HP PRN PO 05/26/25 02:00 Trazodone HCl 50 mg HS PO 05/26/25 22:00 05/28/25 21:11 50 MG Sodium Chloride 1,000 ml @ 75 mls/hr [id number] IV 05/26/25 02:45 05/28/25 21:12 75 MLS/HR Thiamine HCl 100 mg DAILY PO 05/26/25 10:00 05/29/25 11:38 100 MG Folic Acid 1 mg DAILY PO 05/26/25 10:00 05/29/25 11:38 1 MG Ceftriaxone Sodium 50 ml @ 100 mls/hr DAILY@2100 IV 05/26/25 21:00 05/28/25 21:12 100 MLS/HR Ergocalciferol 50,000 unit Q7D PO 05/26/25 10:00 05/26/25 10:30 50,000 UNIT Lactulose 15 ml BID PO 05/28/25 22:00 12/7/25 11:38 15 ML Polyethylene Glycol 17 gm DAILY PO 05/30/25 10:00 Examination General Appearance: Alert, Oriented X3, Cooperative, No acute distress HEENT: Atraumatic, PERRLA, EOMI, Mucous membrane moist/pink Respiratory: Clear to auscultation, Normal air movement Cardiovascular: Regular rate, Normal S1, Normal S2, No murmurs, no chest wall tenderness Abdominal: Normal bowel sounds, Soft, No tenderness, No hepatospenomegaly, No masses Extremities: No clubbing, No cyanosis, No edema, Normal pulses, No tenderness/swelling Skin: No rashes, No breakdown, No significant lesion Neuro: Normal gait, Normal speech, Strength at 5/5 X4 ext, Normal tone, Sensation intact, Cranial nerves 3-12 NL, Reflexes 2+ Psych/Mental Status: Mental status NL, Mood NL laboratory and microbiology Laboratory Tests 05/29/25 04:46 Test 05/29/25 04:46 Range/Units Serum Glucose 82 74-106 mg/dL Microbiology Date/Time Source Procedure Growth Status 05/26/25 05:14 Stool Stool Culture - Final Complete 05/26/25 05:14 Stool Shiga Toxin I & II - Final Complete 05/26/25 02:30 Voided Urine Urine Culture - Final Complete Labs and/or images reviewed: Labs reviewed by me, Image(s) reviewed by me Problem List/Assessment/Plan Problem List/Assessment/Plan Intractable left flank/back pain due to bilateral nephrolithiasis Left sided hydronephrosis Acute gastroenteritis viral/bacterial Complicated urinary tract infection Hyponatremia Vitals: On admission, tachycardic In ER patient received NSS, ondansetron, famotidine, ketorolac, multivitamin, folic acid, thiamine. UA showed blood 1+, leukocyte esterase 2+, RBC 4, WBC 30 Lipase: 44 Creatinine kinase -48 CT abdomen pelvis wo contrast: 19 mm calculus is seen in the left renal pelvis with moderate left hydronephrosis. Bilateral additional nephrolithiasis is seen. UDS-negative Clear liquid Ceftriaxone IV empiric antibiotic Flagyl IV IVF Pain management antiemetic Urology consult Serum osmolarity Lactic acid IR consulted Anemia of chronic disease Hemoglobin 11.4, HCT 33.7, RDW 15.6, MCV 89.8 No active signs symptoms of bleeding Hypertensive nephropathy RIRI on CKD due to vasomotor nephropathy Unknown baseline Metabolic acidosis due to above IVF, patient able to make urine Lisinopril -home medication Monitor renal function Avoid nephrotoxic drugs Nephrology consult ETOH use disorder Current CIWA score-0 Alcohol level Thiamine Folic acid Vitamin D deficiency Vitamin D 98247 u/weekly Hyponatremia Sodium 127 Bmp Bilateral breast implants. Surgical screws are present within the left proximal femur. Diet: Clear liquid GI prophylaxis: Pantoprazole DVT prophylaxis: Patient ambulating, SCD Goals of care Full code status. Case discussed with Dr. Zarate Plan discussed with: Patient, Other (RN) My Orders My Orders Orders - IMAN BOLIVAR RESDIENT Procedure Category Date Status Time Polyethylene Glycol PHA 05/30/25 In Process 17g Powder (Miralax 10:00 Visit Coding STANDARD RES Billing Provider: MANDY ZARATE DO Date of Service if different f: May 29, 2025 Common Visit Codes: [id number] INP/OBS CARE(HIGH) IMAN BOLIVAR RESDIENT May 29, 2025 15:25
[2025-05-30 05:00] VITALS: BP 121/88; PULSE 91; RESP 18; TEMP 98.1; O2SAT 97
[2025-05-30 07:00] LABS: Hemoglobin 9.6 g/dL (12.2-16.2); Nucleated Red Blood Cells % 0.0 %
[2025-05-30 07:02] LABS: Hematocrit 28.7 % (36.0-46.0); Mean Corpuscular Hemoglobin 29.7 pg (28.0-32.0); Mean Corpuscular Volume 89.1 fL (80.0-100.0)
[2025-05-30 07:22] LABS: Alanine Aminotransferase 17 U/L (7-40); Alkaline Phosphatase 77 U/L (46-116); Anion Gap 13 (5-15); BUN/Creatinine Ratio 18.5 (10.0-20.0); Carbon Dioxide 22 mmol/L (20-31); Chloride 102 mmol/L (98-107); Glucose 83 mg/dL (74-106); Sodium 137 mmol/L (136-145); Total Protein 6.3 g/dL (5.7-8.2)
[2025-05-30 07:23] LABS: Albumin 3.5 g/dL (3.2-4.8); Blood Urea Nitrogen 32 mg/dL (9-23); Calcium 8.5 mg/dL (8.7-10.4); Potassium 3.1 mmol/L (3.5-5.1)
[2025-05-30 07:24] LABS: Bilirubin, Total 0.2 mg/dL (0.2-1.0)
[2025-05-30 08:00] VITALS: PULSE 85; RESP 16; O2SAT 96
[2025-05-30 08:38] VITALS: BP 139/99; PULSE 85; RESP 16; TEMP 98.3; O2SAT 96
[2025-05-30] MEDS: POTASSIUM EFFERVESENT TAB 25 MEQ PO ONE (10:06)
[2025-05-30] MEDS: POLYETHYLENE GLYCOL 17 GM PWDR PO SCH (10:07)
[2025-05-30 13:00] VITALS: BP 125/99; PULSE 91; RESP 17; TEMP 98.3; O2SAT 100
--- NOTE | 2025-05-30 13:45 | DVHDSRES ---
Discharge Summary Date of Admission Resident Creating Document: IMAN BOLIVAR RESDIERWIN May 26, 2025 at 01:58 Date of Discharge: May 30, 2025 Labs/Diagnostic Data: Laboratory Results Test 05/30/25 06:06 05/26/25 12:36 05/26/25 11:28 05/26/25 09:30 White Blood Count 9.8 10^3/uL (4.4-10.8) Red Blood Count 3.22 10^6/uL (4.0-5.20) Hemoglobin 9.6 g/dL (12.2-16.2) Hematocrit 28.7 % (36.0-46.0) Mean Corpuscular Volume 89.1 fL (80.0-100.0) Mean Corpuscular Hemoglobin 29.7 pg (28.0-32.0) Mean Corpuscular Hemoglobin Concent 33.3 g/dL (32.0-36.0) Red Cell Distribution Width 15.1 % (11.8-14.3) Platelet Count 541 10^3/uL (140-450) Mean Platelet Volume 6.5 fL (6.9-10.8) Neutrophils (%) (Auto) 75.2 % (37.0-80.0) Lymphocytes (%) (Auto) 14.0 % (10.0-50.0) Monocytes (%) (Auto) 8.9 % (0.0-12.0) Eosinophils (%) (Auto) 1.6 % (0.0-7.0) Basophils (%) (Auto) 0.3 % (0.0-2.0) Neutrophils # (Auto) 7.4 10 ^3/uL (1.6-8.6) Lymphocytes # (Auto) 1.4 10 ^3/uL (0.4-5.4) Monocytes # (Auto) 0.9 10 ^3/uL (0-1.3) Eosinophils # (Auto) 0.2 10 ^3/uL (0-0.8) Basophils # (Auto) 0 10 ^3/uL (0-0.2) Nucleated Red Blood Cells 0.0 % Sodium Level 137 mmol/L (136-145) Potassium Level 3.1 mmol/L (3.5-5.1) Chloride Level 102 mmol/L (98-107) Carbon Dioxide Level 22 mmol/L (20-31) Anion Gap 13 (5-15) Blood Urea Nitrogen 32 mg/dL (9-23) Creatinine 1.73 mg/dL (0.550-1.02) Glomerular Filtration Rate Calc 36 mL/min (>90) BUN/Creatinine Ratio 18.5 (10.0-20.0) Serum Glucose 83 mg/dL (74-106) Calcium Level 8.5 mg/dL (8.7-10.4) Total Bilirubin 0.2 mg/dL (0.2-1.0) Aspartate Amino Transferase (AST) 20 U/L (13-40) Alanine Aminotransferase (ALT) 17 U/L (7-40) Alkaline Phosphatase 77 U/L (46-116) Total Protein 6.3 g/dL (5.7-8.2) Albumin 3.5 g/dL (3.2-4.8) Prothrombin Time 10.2 sec (9.3-11.8) Prothrombin Time INR 0.96 (0.9-1.15) Uric Acid 7.9 mg/dL (3.1-7.8) Phosphorus Level 5.9 mg/dL (2.4-5.1) Magnesium Level 2.3 mg/dL (1.6-2.6) Parathyroid Hormone (Intact) 60.5 pg/mL (18.4-80.1) Serum Osmolality 293 mOsm/kg (278-298) Lactic Acid Level 0.4 mmol/L (0.4-2.0) Urine Color Colorless (Yellow) Urine Clarity Clear (Clear) Urine pH 6.5 (5.0-9.0) Urine Specific [place] 1.005 (1.001-1.035) Urine Protein Negative (Negative) Urine Ketones Negative (Negative) Urine Blood 1+ /uL (Negative) Urine Nitrite Negative (Negative) Urine Bilirubin Negative (Negative) Urine Urobilinogen Normal mg/dL (Negative) Urine Leukocyte Esterase 1+ /uL (Negative) Urine RBC 3 /hpf (0 - 4) Urine Microscopic WBC 7 /HPF (0-5) Urine Squamous Epithelial Cells Few /hpf (<5) Urine Bacteria Few /hpf (None Seen) Urine Creatinine 16.67 mg/dL (30.0-125.0) Urine Protein/Creatinine Ratio 1.52 Urine Sodium 50 mmol/L (40-220) Urine Glucose Normal mg/dL (Normal) Urine Total Protein 25.4 mg/dL (1-14) Test 05/26/25 02:30 05/26/25 00:14 Urine Opiates Screen Neg (NEGATIVE) Urine Fentanyl Screen Neg (NEGATIVE) Urine Barbiturates Screen Neg (NEGATIVE) Urine Phencyclidine Screen Neg (NEGATIVE) Urine Amphetamines Screen Neg (NEGATIVE) Urine Benzodiazepines Screen Neg (NEGATIVE) Urine Cocaine Screen Neg (NEGATIVE) Urine Cannabinoids Screen Neg (NEGATIVE) Creatine Kinase 48 U/L (34-145) Lipase 44 U/L (12-53) Vitamin B12 Level 1168 pg/mL (211-911) Vitamin D 25-Hydroxy 21.3 ng/mL (30.0-100) Thyroid Stimulating Hormone (TSH) 4.41 uIU/mL (0.55-4.78) Plasma/Serum Blood Alcohol < 3.0 mg/dL (<10) Other Laboratory Tests 05/30/25 06:06 Brief Hx & Hospital Course: HISTORY OF PRESENT ILLNESS: This is a 49-year-old female with past medical history of hypertension, nephrolithiasis, anxiety disorder, insomnia, low-back pain transfer from [facility] due to left flank pain. Patient had left flank pain for 1 week which is worsen for 1 day, 8/10 intensity, aggravated on movement, dull and burning in nature, continuous, tried ibuprofen with does not helps a lot. Patient reports that she does drink alcohol regularly, drinks each day. However, has not had any alcoholic beverages in the last few days due to her abdominal discomfort. Patient reports starting with several episodes of nonbloody, nonbilious emesis and several episodes of the loose, watery stools. Denies any recent antibiotic use. No recent travel outside of the ordinary. Diarrhea for same duration which is on and off, does not mixed with blood. Patient multiple history of surgery including surgical screw on left femur due to early stage osteoporotic fracture, bilateral breast augmentation, history of salpingo-oophorectomy. Patient denies any recent dietary changes, sick contacts, fall or trauma. Patient currently denies any fever, chest pain, SOB, headache, dysuria, any focal weakness. HOSPITAL COURSE: Patient was admitted in the hospital due to renal cell leading to obstructive nephropathy on moderate hydronephrosis. Urinalysis was showing UTI, the patient had complaining of dysuria, burning sensation, frequency and suprapubic pain. The patient was started on empiric antibiotic of Rocephin. Urology consulted, recommended nephrostomy tube placement by Radiology. Cardiology evaluated the patient, recommended the hydronephrosis mild and does not need nephrostomy tube placement. Patient also had vitamin-D deficiency, on supplemented during hospital course. During hospital course, the patient was also given IV fluid, and pain management. On 05/30, the patient was feeling better and does not have any complaint. Kidney function was getting better and serum creatinine was decreasing. Discharge plan discussed with the patient and the patient discharged home. DISCHARGE PLAN: Follow up with the PCP within 1 week of the discharge. Follow up with the discharge Clinic within 1 week of the discharge. Follow up with the Urology on outpatient basis. Augmentin 875 mg b.i.d. for 3 days. Continue home med FINAL DIAGNOSIS: bilateral nephrolithiasis with left hydronephrosis Left sided hydronephrosis Intractable left flank/back pain due to above Acute gastroenteritis, INFECTIOUS etiology likely Sepsis, due to above Complicated urinary tract infection Anemia of chronic disease Hypertensive nephropathy RIRI on CKD due to vasomotor nephropathy Obstructive nephropathy/hydronephrosis, due to above Unknown baseline Metabolic acidosis due to above ETOH use disorder Vitamin D deficiency Hyponatremia Bilateral breast implants. Surgical screws are present within the left proximal femur. Hypokalemia Condition at Discharge: Fair Final Diagnosis/Problems List bilateral nephrolithiasis with left hydronephrosis Left sided hydronephrosis Intractable left flank/back pain due to above Acute gastroenteritis, INFECTIOUS etiology likely Sepsis, due to above Complicated urinary tract infection Anemia of chronic disease Hypertensive nephropathy RIRI on CKD due to vasomotor nephropathy Obstructive nephropathy/hydronephrosis, due to above Unknown baseline Metabolic acidosis due to above ETOH use disorder Vitamin D deficiency Hyponatremia Bilateral breast implants. Surgical screws are present within the left proximal femur. Hypokalemia. Discharge Disposition: Home Discharge Instruct/Medications Scheduled Amoxicillin & Pot Clavulanate (Augmentin Tablet), 875 MG PO BID Cyclobenzaprine Hcl (Cyclobenzaprine Hcl), 1 TAB PO TID, (Reported) Hydroxyzine Hcl (Hydroxyzine Hcl), 1 TAB PO TID, (Reported) Lisinopril (Lisinopril), 5 MG PO DAILY, (Reported) Pantoprazole Sodium Sesquihydr (Protonix), 40 MG PO DAILY Trazodone Hcl (Trazodone Hcl), 50 MG PO HS, (Reported) Discharge Statement: "Patient was advised to return to the ER or call 911 if any headaches, dizziness, shortness of breath, chest pain, abdominal pain, bleeding, fevers, or worsening of medical condition. Patient was counseled about treatment plan, medications, possible side effects, patientverbalized understanding. All questions were answered to the best of my ability. This discharge took greater then 30 minutes in planning, reviewing documentation, counseling the patient, and discussing with other team members." ASSESSMENT ASSESSMENT Assessment Visit Coding STANDARD RES Billing Provider: CELE SANCHEZ MD Date of Service if different f: May 30, 2025 Common Visit Codes: 36645-ZGR/OBS DISCH DAY >30min Visit Coding STANDARD RES Billing Provider: CELE SANCHEZ MD Date of Service if different f: May 30, 2025 Common Visit Codes: 08203-PEF/OBS DISCH DAY >30min IMAN BOLIVAR RESDIENT May 30, 2025 13:45 CELE SANCHEZ MD Jun 03, 2025 09:55
[2025-05-30] MEDS ORDERED: AUG875T PO (14:11)
[2025-05-30] MEDS ORDERED: PANT40TA2 PO (14:15)
== END 2025-05-30 16:30 | disposition home or self-care (01) | DRG 720 ==
LOC: EDBD 23:31 → ER 23:31 → OVERFLOW 05-26 01:58 → WEST WING 05-26 18:29
PROVIDERS: ADMIT Student in an Organized Health Care Education/Training Program; ATTEND Student in an Organized Health Care Education/Training Program
DX: A41.89 Other specified sepsis (principal); N17.0 Acute kidney failure with tubular necrosis; E87.20 Acidosis, unspecified; D63.1 Anemia in chronic kidney disease; E86.0 Dehydration; N13.6 Pyonephrosis; A04.9 Bacterial intestinal infection, unspecified; F10.10 Alcohol abuse, uncomplicated; F32.A Depression, unspecified; E03.9 Hypothyroidism, unspecified; I12.9 Hypertensive chronic kidney disease with stage 1 through stage 4 chronic kidney disease, or unspecified chronic kidney disease; N18.9 Chronic kidney disease, unspecified; A08.4 Viral intestinal infection, unspecified; E87.1 Hypo-osmolality and hyponatremia; G43.909 Migraine, unspecified, not intractable, without status migrainosus; F41.9 Anxiety disorder, unspecified; M81.0 Age-related osteoporosis without current pathological fracture; E55.9 Vitamin D deficiency, unspecified; E79.0 Hyperuricemia without signs of inflammatory arthritis and tophaceous disease; E87.6 Hypokalemia; Z90.710 Acquired absence of both cervix and uterus; Z87.442 Personal history of urinary calculi; Z79.899 Other long term (current) drug therapy; Z98.82 Breast implant status; Z88.5 Allergy status to narcotic agent; Y90.9 Presence of alcohol in blood, level not specified
CPT/HCPCS: 36415; 74176; 76775; 80048; 80053; 80307; 80320; 81001; 82306; 82550; 82570; 82607; 83605; 83690; 83735; 83930; 83970; 84100; 84156; 84300; 84443; 84550; 85025; 85610; 87045; 87086; G0378; J1885; J2405; J3480; J3490